=== PATIENT | male | born 1955 | race Caucasian/White ===

== ENCOUNTER 2019-03-17 00:43 | Inpatient (IN) | payer BC, MEDICARE ==
[2019-03-17] VITALS (24 sets, daily range): BP systolic 124–216; BP diastolic 69–108
[~2019-03-17] VITALS: Ht 182.9 cm; Wt 134.8 kg
[2019-03-17 01:18] LABS: BASO % 0 % (0-3); EOS % 0 % (0-3); HEMATOCRIT 52.9 % (39.0-53.0); HEMOGLOBIN 17.5 g/dL (13.0-17.5); LYMPH # 0.8 x10^3/uL (1.0-4.8); LYMPH % 6 % (24-48); MEAN CORPUSCULAR HEMOGLOBIN 28 pg (25-35); MEAN CORPUSCULAR HGB CONC 33 g/dL (31-37); MEAN CORPUSCULAR VOLUME 84 fL (79-100); MONO # 1.4 x10^3/uL (0.0-1.1); MONO % 10 % (0-9); NEUT # 12.6 x10^3/uL (1.8-7.7); NEUT % 85 % (31-73); PLATELET COUNT 173 x10^3/uL (140-400); RED BLOOD COUNT 6.28 x10^6/uL (4.30-5.70); RED CELL DISTRIBUTION WIDTH 20.7 % (11.5-14.5); WHITE BLOOD COUNT 14.9 x10^3/uL (4.0-11.0)
[2019-03-17] MEDS ORDERED: IV NORMAL SALINE 1000ML BAG 1,000 ML IV ONE ×2 (01:30→02:00)
[2019-03-17] MEDS ORDERED: fentaNYL PF VIAL 100 MCG/2 ML VIAL IV ONE (01:30)
--- NOTE | 2019-03-17 01:33 | PHYS DOC ---
Past Medical History Past Medical History: Hypertension Past Surgical History: No Surgical History Alcohol Use: None Drug Use: None Adult General Chief Complaint Chief Complaint: HIP PAIN, hallucinating HPI HPI Patient is a 63 year old male who presents via EMS with complaining of hip pain and hallucinating. Patient is not able to give history and his states he developed severe left hip pain about 1 month ago without known injury while visiting [place] and upon arriving to his home town in [place] he developed UTI very close to have sepsis and treated as outpatient with improvement of his condition. Patient had unremarkable x-ray of left and MRI was scheduled but they left their home town on March 06 and drove to [place] and then [place] and [place]. Patient was not able to drive and complaining of pain all the time but for the last 3 days was confused and hallucinating and not acting like his usual and finally agreed to come to the hospital by ambulance.Patient is alert and oriented 1 and unable to give any history. Review of Systems Review of Systems Unable to obtain Current Medications Current Medications Current Medications Medications (Trade) Dose Ordered Sig/Erasto Start Time Stop Time Status Last Admin Dose Admin Fentanyl Citrate (Fentanyl 2ml Vial) 50 mcg 1X ONCE 03/17/19 01:30 03/17/19 01:31 DC 03/17/19 01:37 50 MCG Sodium Chloride 1,000 ml @ 1,000 mls/hr 1X ONCE 03/17/19 01:30 03/17/19 02:29 DC 03/17/19 01:36 1,000 MLS/HR Allergies Allergies Allergies Coded Allergies Type Severity Reaction Last Updated Verified No Known Drug Allergies 03/17/19 No Physical Exam Physical Exam Constitutional: Well nourished, moderate distress, non-toxic appearance. [] HENT: Normocephalic, atraumatic. Eyes: PERRLA, EOMI, conjunctiva normal, no discharge. [] Neck: Normal range of motion, no tenderness, supple, no stridor. [] Cardiovascular:Heart rate regular rhythm, no murmur [] Lungs & Thorax: Bilateral breath sounds clear to auscultation [] Abdomen: Bowel sounds normal, soft, no tenderness, no masses, no pulsatile masses. [] Skin: Warm, dry, no erythema, no rash. [] Back: No tenderness, no CVA tenderness. [] Extremities: Left hip without deformity, no tenderness, 90 flexion of left knee with internal rotation of hip, no cyanosis, no clubbing, ROM intact, no edema. [] Neurologic: Alert and oriented X 1, no focal deficits noted. [] Psychologic: Unable to evaluate Current Patient Data Vital Signs Vital Signs Date Time Temp Pulse Resp B/P (MAP) Pulse Ox O2 Delivery O2 Flow Rate FiO2 03/17/19 01:00 97.6 129 24 142/73 (96) 98 Room Air 97.6 Lab Values Laboratory Tests Test 03/17/19 00:57 03/17/19 01:00 Lactic Acid Level 1.7 mmol/L (0.4-2.0) White Blood Count 14.9 x10^3/uL (4.0-11.0) H Red Blood Count 6.28 x10^6/uL (4.30-5.70) H Hemoglobin 17.5 g/dL (13.0-17.5) Hematocrit 52.9 % (39.0-53.0) Mean Corpuscular Volume 84 fL (79-100) Mean Corpuscular Hemoglobin 28 pg (25-35) Mean Corpuscular Hemoglobin Concent 33 g/dL (31-37) Red Cell Distribution Width 20.7 % (11.5-14.5) H Platelet Count 173 x10^3/uL (140-400) Neutrophils (%) (Auto) 85 % (31-73) H Lymphocytes (%) (Auto) 6 % (24-48) L Monocytes (%) (Auto) 10 % (0-9) H Eosinophils (%) (Auto) 0 % (0-3) Basophils (%) (Auto) 0 % (0-3) Neutrophils # (Auto) 12.6 x10^3/uL (1.8-7.7) H Lymphocytes # (Auto) 0.8 x10^3/uL (1.0-4.8) L Monocytes # (Auto) 1.4 x10^3/uL (0.0-1.1) H Eosinophils # (Auto) 0.0 x10^3/uL (0.0-0.7) Basophils # (Auto) 0.0 x10^3/uL (0.0-0.2) Platelet Estimate Adequate (ADEQUATE) Microcytosis Slight Macrocytosis Slight Sodium Level 131 mmol/L (136-145) L Potassium Level 5.9 mmol/L (3.5-5.1) H Chloride Level 94 mmol/L (98-107) L Carbon Dioxide Level 14 mmol/L (21-32) L Anion Gap 23 (6-14) H Blood Urea Nitrogen 145 mg/dL (8-26) H Creatinine 12.7 mg/dL (0.7-1.3) H Estimated GFR (Cockcroft-Gault) 4.0 BUN/Creatinine Ratio 11 (6-20) Glucose Level 149 mg/dL (70-99) H Calcium Level 9.3 mg/dL (8.5-10.1) Magnesium Level 2.5 mg/dL (1.8-2.4) H Total Bilirubin 1.7 mg/dL (0.2-1.0) H Aspartate Amino Transferase (AST) 128 U/L (15-37) H Alanine Aminotransferase (ALT) 41 U/L (16-63) Alkaline Phosphatase 174 U/L (46-116) H Creatine Kinase 4468 U/L (39-308) H Troponin I Quantitative < 0.017 ng/mL (0.000-0.055) WM-Qyg-U-Type Natriuretic Peptide 429 pg/mL (0-124) H Total Protein 7.8 g/dL (6.4-8.2) Albumin 2.6 g/dL (3.4-5.0) L Albumin/Globulin Ratio 0.5 (1.0-1.7) L Laboratory Tests 03/17/19 01:00 Laboratory Tests 03/17/19 01:00 EKG EKG EKG interpreted by me. EKG at 0108 showed sinus tachycardia at rate of 128, left word axis, low QRS voltage, poor R-wave progress in anteroseptal lead, no acute ST and T-wave abnormalities Radiology/Procedures Radiology/Procedures [][facility] [address] [place], [place] [id number] IMAGING REPORT Signed PATIENT: TONG COHEN CACCOUNT: [id number] : 1955 LOCATION: [address] [place] [address] AGE: 63 SEX: M EXAM STATUS: ADM IN ORD. PHYSICIAN: JENNIFER CHRISTIE MD REASON: confusion PROCEDURE: PORTABLE CHEST 1V EXAM: CHEST ONE VIEW. HISTORY: Altered mental status.. COMPARISON: None. FINDINGS: A frontal view of the chest is obtained. The inspiration is small. There is mild basilar atelectasis. There is no pneumothorax or pleural effusion. The heart is not enlarged. IMPRESSION: 1. Small inspiration. Mild basilar atelectasis. Electronically signed by: Felecia Quevedo MD (03/17/2019 3:22 AM) [facility] [id number] DICTATED and SIGNED BY: SMITA QUEVEDO MD DATE: 03/17/[address] [address] IMAGING REPORT Signed PATIENT: TONG COHENCOUNT: [id number] : 1955 LOCATION: [address] [place] [address] AGE: 63 SEX: M EXAM STATUS: ADM IN ORD. PHYSICIAN: JENNIFER CHRISTIE MD REASON: confusion PROCEDURE: CT HEAD WO CONTRAST EXAM: CT HEAD WITHOUT CONTRAST. HISTORY: Altered mental status. TECHNIQUE: Computed tomography of the head was performed without intravenous contrast. COMPARISON: None. FINDINGS: There is no intracranial hemorrhage. John-white differentiation is preserved. The ventricles are normal in size and position. The visualized paranasal sinuses appear clear. There are changes of bilateral cataract surgery. The temporal bones are unremarkable. The calvarium reveals no suspicious lesions. IMPRESSION: 1. No acute intracranial findings. *One or more of the following individualized dose reduction techniques were utilized for this examination: 1. Automated exposure control. 2. Adjustment of the mA and/or kV according to patient size. 3. Use of iterative reconstruction technique. Electronically signed by: Felecia Quevedo MD (03/17/2019 3:23 AM) [facility] – [id number] DICTATED and SIGNED BY: SMITA QUEVEDO MD DATE: 03/17/19322 [address] [address] IMAGING REPORT Signed PATIENT: TONG COHEN CACCOUNT: [id number] : 1955 LOCATION: [address] [place] [address] AGE: 63 SEX: M EXAM STATUS: ADM IN ORD. PHYSICIAN: JENNIFER CHRISTIE MD REASON: LT HIP PAIN, UNABLE TO UNCROSS LEFT LEG OR STRAIGHTEN DUE TO PAIN PROCEDURE: HIP LEFT 1 VIEW WITH PELVIS EXAM: Frontal pelvis with two-view left hip. HISTORY: Left hip pain. COMPARISON: None. FINDINGS: The left hip is flexed, limiting visualization. No fractures are identified. There is mildly decreased femoral head/neck offset anteriorly on the left and superolaterally on the right. There are milder degenerative changes of the lower lumbar spine. IMPRESSION: 1. Projectional limitations as above. 2. Correlate for mild femoroacetabular impingement bilaterally. Electronically signed by: Felecia Quevedo MD (03/17/2019 3:21 AM) [facility] DICTATED and SIGNED BY: SMITA QUEVEDO MD DATE: 03/17/19 032 Course & Med Decision Making Course & Med Decision Making Pertinent Labs and Imaging studies reviewed. (See chart for details) Evaluation of patient in ER showed 63-year-old patient from out of town brought in by EMS because of altered level of consciousness and chronic left hip pain. Patient was oriented 1 with tachycardia and agitation without fever and hypotension. Labs showed BUN of 145 and creatinine of 12.7 without history of renal failure. Patient was very dry and treated with IV fluid. On-call coil finisher Dr. Carmichael was consulted at 0203 and recommended to start D5 with 3 amp of bicarbonate at 150 ML per hour and will see the patient in the morning. CT of abdomen and pelvis and head CT is pending.Patient requiring admission for further evaluation and treatment. Discussed with Dr. Krishnamurthy who is in agreement with admission. Discussed findings and plan with patient and family, who acknowledge understanding and agreement. Dragon Disclaimer Dragon Disclaimer This electronic medical record was generated, in whole or in part, using a voice recognition dictation system. Departure Departure Impression: Primary Impression: Acute renal failure Additional Impressions: Altered level of consciousness Hyperkalemia Rhabdomyolysis Elevated liver function tests Hyponatremia Hypermagnesemia Urinary tract infection Hypoalbuminemia Hypochloremia Uremia Metabolic acidosis Disposition: ADMITTED INPATIENT (at 0134) Admitting Physician: HIMS Condition: GUARDED Referrals: NO PCP (PCP) Critical Care Time Critical care time was 100 minutes exclusive of procedures. Problem Qualifiers Primary Impression: Acute renal failure Acute renal failure type: unspecified Qualified Codes: N17.9 - Acute kidney failure, unspecified Additional Impressions: Rhabdomyolysis Rhabdomyolysis type: non-traumatic Qualified Codes: M62.82 - Rhabdomyolysis Urinary tract infection Urinary tract infection type: site unspecified Hematuria presence: without hematuria Qualified Codes: N39.0 - Urinary tract infection, site not specified JENNIFER CHRISTIE MD Mar 17, 2019 01:33
[2019-03-17 01:35] LABS: CALCIUM 9.3 mg/dL (8.5-10.1); CREATININE 12.7 mg/dL (0.7-1.3); POTASSIUM 5.9 mmol/L (3.5-5.1)
[2019-03-17 01:48] LABS: ALBUMIN 2.6 g/dL (3.4-5.0); ALBUMIN/GLOBULIN RATIO 0.5 (1.0-1.7); MAGNESIUM 2.5 mg/dL (1.8-2.4); TOTAL BILIRUBIN 1.7 mg/dL (0.2-1.0); TOTAL PROTEIN 7.8 g/dL (6.4-8.2)
[2019-03-17] MEDS ORDERED: SODIUM POLYSTYRENE SULFON/SORB 15 GM/60 ML ORAL.SUSP PO ONE (02:00)
[2019-03-17] MEDS ORDERED: VANCOMYCIN 1GM IVPB FOR OMNI 250 ML IV ONE (02:00)
[2019-03-17] MEDS ORDERED: SODIUM BICARB ADULT 8.4% 50 MEQ/50 ML DISP.SYRIN. IV ONE (02:00)
[2019-03-17] MEDS ORDERED: DEXTROSE 50% 25 GM / 50ML DISP.SYRIN. IV ONE (02:00)
[2019-03-17] MEDS ORDERED: PIPERACILLIN/TAZOBACTAM 3.375 GM in IV NORMAL SALINE 50ML 50 ML IV ONE (02:00)
[2019-03-17] MEDS ORDERED: INSULIN REGULAR 100 UNIT/ML 3ML VIAL. IV ONE (02:00)
[2019-03-17 02:20] LABS: BILIRUBIN,URINE NEGATIVE (NEG); CLARITY,URINE TURBID; COLOR,URINE AMBER; NITRITE,URINE NEGATIVE (NEG); PH,URINE 5.5; PROTEIN,URINE 100 mg/dL (NEG-TRACE); UROBILINOGEN,URINE 0.2 mg/dL (0.2 mg/dL)
[2019-03-17 02:44] LABS: BACTERIA,URINE MANY /HPF (0-FEW); RBC,URINE TNTC /HPF (0-2); SQUAMOUS EPITHELIAL CELL,UR FEW /LPF; WBC,URINE TNTC /HPF (0-4)
[2019-03-17 03:04] LABS: MICROCYTOSIS SLIGHT; PLT ESTIMATE ADEQUATE (ADEQUATE)
--- NOTE | 2019-03-17 03:24 | RAD ---
EXAM: Frontal pelvis with two-view left hip. HISTORY: Left hip pain. COMPARISON: None. FINDINGS: The left hip is flexed, limiting visualization. No fractures are identified. There is mildly decreased femoral head/neck offset anteriorly on the left and superolaterally on the right. There are milder degenerative changes of the lower lumbar spine. IMPRESSION: 1. Projectional limitations as above. 2. Correlate for mild femoroacetabular impingement bilaterally. Electronically signed by: Felecia Quevedo MD (03/17/2019 3:21 AM) [facility]
--- NOTE | 2019-03-17 03:25 | RAD ---
EXAM: CHEST ONE VIEW. HISTORY: Altered mental status.. COMPARISON: None. FINDINGS: A frontal view of the chest is obtained. The inspiration is small. There is mild basilar atelectasis. There is no pneumothorax or pleural effusion. The heart is not enlarged. IMPRESSION: 1. Small inspiration. Mild basilar atelectasis. Electronically signed by: Felecia Quevedo MD (03/17/2019 3:22 AM) [facility]
--- NOTE | 2019-03-17 03:26 | RAD ---
EXAM: CT HEAD WITHOUT CONTRAST. HISTORY: Altered mental status. TECHNIQUE: Computed tomography of the head was performed without intravenous contrast. COMPARISON: None. FINDINGS: There is no intracranial hemorrhage. John-white differentiation is preserved. The ventricles are normal in size and position. The visualized paranasal sinuses appear clear. There are changes of bilateral cataract surgery. The temporal bones are unremarkable. The calvarium reveals no suspicious lesions. IMPRESSION: 1. No acute intracranial findings. *One or more of the following individualized dose reduction techniques were utilized for this examination: 1. Automated exposure control. 2. Adjustment of the mA and/or kV according to patient size. 3. Use of iterative reconstruction technique. Electronically signed by: Felecia Quevedo MD (03/17/2019 3:23 AM) [facility]
[2019-03-17] MEDS ORDERED: HYDROmorphone 2 MG/ML VIAL IV ONE (04:00)
[2019-03-17] MEDS: SODIUM BICARBONATE VIAL 150 MEQ in IV DEXTROSE 5% 1,000 ML IV SCH ×3 (04:26→21:09)
--- NOTE | 2019-03-17 05:43 | NUR ---
PATIENT IS TRANSFERRED TO ICU ROOM 110 FROM THE ED. REPORT RECEIVED FROM FREDDY CHAPIN. UPON ARRIVAL PATIENT AWAKE, DYSPHASIA. BASELINE IS ALERT AND ORIENTED X4 AND IS ABLE TO CARE FOR HIMSELF. PATIENT'S AT BEDSIDE STATES THEY ARE FROM [place] AND HAVE BEEN TRAVELING FROM [place] WHEN PATIENT APPEARED ALTERED WITH GENERAL MALAISE. CURRENTLY BEING TREATED FOR UTI AND HAS BEEN TAKING PO ABX BUT NOT RELIEVING SYMPTOMS. CURRENTLY BEING EVALUATED BY UROLOGY AND WAS SCHEDULED FOR CYSTOSCOPY NEXT WEEK. HX OF UTI'S AND AN ABLATION ABOUT 3 MONTHS AGO. SEPSIS POSITIVE. FOUNDING PARTNER TO ICU PATIENT WITH 2LNS INFUSED, NORMAL LACTIC ACID, BLOOD CULTURES AND ABX COMPLETED. IVS AND BICARB, INSULIN, AND D50, VANCO AND BICARB DRIP TO BE GIVEN IN ICU. SEPSIS. DR. SOTO CALLED AND ORDERS FOR IR FOR DIALYSIS CATH. KAYEXOLATE DISCONTINUED AND NOT NEEDED AT THIS TIME. WILL CONTINUE TO MONITOR.
[2019-03-17] MEDS ORDERED: CYCL10TA2 PO (06:45)
[2019-03-17] MEDS ORDERED: OLME1TAB35 PO (06:45)
[2019-03-17] MEDS ORDERED: OXYC1TAB7 PO (06:45)
[2019-03-17] MEDS ORDERED: DOXA4TAB3 PO (06:45)
[2019-03-17] MEDS ORDERED: LIDOCAINE WITH 8.4% SOD BICARB 3 ML DISP.SYRIN. INJ ONE (07:30)
--- NOTE | 2019-03-17 07:55 | NUR ---
IR IN PT ROOM AT THIS TIME TO PLACE TEMP DIALYSIS CATH.
--- NOTE | 2019-03-17 08:28 | RAD ---
EXAM: Chest, single view. HISTORY: Dialysis catheter placement. COMPARISON: 03/17/2019 FINDINGS: A frontal view of the chest is obtained. There is a right internal jugular dialysis catheter with the tip in the superior cavoatrial junction or superior right atrium. There is mention. There are suspected small pleural effusions. There is no pneumothorax. There is a stable cardiac silhouette. IMPRESSION: 1. Right internal jugular catheter with the tip in the superior right atrium or superior cavoatrial junction. 2. Mild pulmonary congestion with possible small pleural effusions. Electronically signed by: Michelle Rehman MD (03/17/2019 8:26 AM) [facility]
--- NOTE | 2019-03-17 08:52 | PDOC ---
Exam Wafer Fabrication Operator Wafer Fabrication Operator joel Buhr Dresser Buhr Dresser n/a Pre-Procedure Diagnosis Pre-Procedure Diagnosis renal failure Post-Procedure Diagnosis Post-Procedure Diagnosis same Procedure Performed Procedure Performed HD catheter Type of Anesthesia Type of Anesthesia local Estimated Blood Loss EBL: trace Specimens Specimans n/a Drain/Tubes Drains/Tubes 14 FR x 20 cm Condition of Patient Condition of Patient stable SOSA BARRETT MD Mar 17, 2019 08:52
[2019-03-17 09:15] LABS: BASO % 0 % (0-3); EOS # 0.1 x10^3/uL (0.0-0.7); EOS % 0 % (0-3); HEMATOCRIT 46.8 % (39.0-53.0); HEMOGLOBIN 15.7 g/dL (13.0-17.5); LYMPH # 0.7 x10^3/uL (1.0-4.8); LYMPH % 6 % (24-48); MEAN CORPUSCULAR HEMOGLOBIN 28 pg (25-35); MEAN CORPUSCULAR HGB CONC 34 g/dL (31-37); MEAN CORPUSCULAR VOLUME 83 fL (79-100); MONO # 1.2 x10^3/uL (0.0-1.1); MONO % 10 % (0-9); NEUT # 10.8 x10^3/uL (1.8-7.7); NEUT % 84 % (31-73); PLATELET COUNT 162 x10^3/uL (140-400); RED BLOOD COUNT 5.64 x10^6/uL (4.30-5.70); RED CELL DISTRIBUTION WIDTH 20.7 % (11.5-14.5); WHITE BLOOD COUNT 12.8 x10^3/uL (4.0-11.0)
[2019-03-17 09:23] LABS: PROTHROMBIN TIME PATIENT 18.9 SEC (11.7-14.0)
--- NOTE | 2019-03-17 09:33 | NUR ---
PT RECEIVING DIALYSIS AT BEDSIDE AT THIS TIME Addendum: 03/17/19 at 0935 by Franklin Armenta RN DISREGARD NOTE WRONG CHART
[2019-03-17 09:39] LABS: ALBUMIN 2.1 g/dL (3.4-5.0); ALBUMIN/GLOBULIN RATIO 0.5 (1.0-1.7); CALCIUM 8.3 mg/dL (8.5-10.1); GFR 4.7; POTASSIUM 5.4 mmol/L (3.5-5.1); TOTAL BILIRUBIN 1.4 mg/dL (0.2-1.0); TOTAL PROTEIN 6.4 g/dL (6.4-8.2)
[2019-03-17] MEDS ORDERED: IV NORMAL SALINE 1000ML BAG 1,000 ML IV PRN ×2 (10:58)
[2019-03-17] MEDS ORDERED: ALBUMIN HUMAN 25% 200 ML IV PRN (11:00)
[2019-03-17] MEDS ORDERED: diphenhydrAMINE 50 MG/ML VIAL IV PRN ×2 (11:00)
[2019-03-17] MEDS ORDERED: ACETAMINOPHEN 500 MG TABLET PO PRN (11:00)
[2019-03-17] MEDS ORDERED: 0.9 % SODIUM CHLORIDE 10 ML DISP.SYRIN. IV PRN ×2 (11:00)
[2019-03-17] MEDS ORDERED: DIALYSIS PATIENT. MC PRN (11:00)
--- NOTE | 2019-03-17 11:20 | EKG ---
[facility] [address] [place] [address] Test Date: 2019-03-17 Test Time: 01:08:27 Pat Name: TONG COHEN Department: Room: 110 1 Gender: M Vp Product Management: : 1955 Requested By: JENNIFER CHRISTIE Order Number: [id number] Reading MD: Elton Martinez MD Measurements Intervals [place] Rate: 128 P: -143 [place]: 68 QRS: -28 QRSD: 90 T: 34 QT: 270 QTc: 397 Interpretive Statements SINUS TACHYCARDIA NON-SPECIFIC ST/T CHANGES CONSIDER INFERIOR INFARCT Electronically Signed On 03-26-2019 10:28:20 CDT by Elton Martinez MD
[2019-03-17] MEDS ORDERED: PIP/TAZO PER PHARMACY MC PRN (12:15)
--- NOTE | 2019-03-17 12:33 | HP ---
ADMIT DATE: 03/17/2019 CHIEF COMPLAINT: Mental status change. HISTORY OF PRESENT ILLNESS: The patient is a pleasant middle-aged male who basically developed mental status change. He and his have been traveling around the country. They went from [place] to [place], then to [place], then I think to [place], apparently they have been trying to get back home to [place], but he has been slowly developing mental status change. The explains that a month ago he had a prostate surgery. I suspect it was a TURP. Two weeks after that he had to have it revised because there was a flap that fell down and was causing renal obstruction. Sure enough, when he got to our ER, his BUN and creatinine were extremely high. I suspect his TURP has failed again. His BUN is 145, creatinine 12.7. I suspect his mental status change is actually uremia. The patient has been admitted to the ICU. We are going to consult Nephrology, get him dialyzed. We have put a catheter in him. A large amount of urine did pour out into the Neri bag. PAST MEDICAL HISTORY: BPH, probable TURP, hypertension, muscle spasms, hypertension, chronic pain. ALLERGIES: None. FAMILY HISTORY: Diabetes. SOCIAL HISTORY: Does not drink, smoke or take drugs. He is retired. MEDICATIONS: Reviewed, please refer to the MRAD. REVIEW OF SYSTEMS: Unable to obtain. The patient is too confused. PHYSICAL EXAMINATION: VITALS: Within normal limits and are stable. GENERAL: No apparent distress. Alert and oriented. HEENT: Head is normocephalic, atraumatic, pupils were equally round and reactive to light and accommodation. NECK: Supple, no JVD, no thyromegaly was noted. LUNGS: Clear to auscultation in all lung perez without rhonchi or wheezing. HEART: RRR, S1, S2 present. Peripheral pulses intact, no obvious murmurs were noted. ABDOMEN: Soft, nontender. Positive bowel sounds, no organomegaly, normal bowel sounds. His abdomen is distended and obese. EXTREMITIES: Without any cyanosis, clubbing, or edema. Pedal pulses intact, Homans sign is negative. NEUROLOGIC: Normal speech, normal tone. A & O x3, moves all extremities, no obvious focal deficits. He is confused. PSYCHIATRIC: Normal affect, normal mood. Stable. SKIN: No ulcerations or rashes, good skin turgor, no jaundice. VASCULAR: Good capillary refill, neurovascular bundle appears to be intact. LABORATORY DATA: White count is 14.9, hemoglobin is 17.5, platelet is 173. Electrolytes: Sodium 131, potassium 5.9, chloride 94, bicarbonate 14, BUN 145, creatinine 12.7, glucose 149, AST a little high at 128, ALT 41. CPK 468. BNP 429. Troponin 0. Urinalysis shows a large amount of leukocyte esterase and numerous to count white cells. INR is 1.6. Hep B surface antigen negative. ASSESSMENT AND PLAN: Mental status change. I suspect this is secondary to a combination of uremia and urinary tract infection with sepsis. The patient has been admitted. We have placed a Neri. I am starting IV Zosyn. Consult Nephrology. Suspect he will need to be dialyzed. In fact, a catheter has been placed already. Home meds. Monitor his urine output, trend his BUN and creatinine, consult Urology. PROGNOSIS: Guarded, but I think once we get him dialyzed and keep the Neri in for a few days, this should resolve. POLY DELGADO DO DR: STAR/jillian JOB#: [id number] / [id number]
--- NOTE | 2019-03-17 13:19 | NUR ---
PT RECEIVING DIALYSIS AT THIS TIME. CONSULT CALLED TO DR. MADDOX.
--- NOTE | 2019-03-17 15:07 | CONS ---
DATE OF CONSULTATION: 03/17/2019 REQUESTING PHYSICIAN: Hospitalist. REASON FOR CONSULTATION: Renal failure. HISTORY OF PRESENT ILLNESS: This is a 63-year-old gentleman with history of hypertension and multiple urologic interventions with history of nephrolithiasis. The patient is from [place]. He has been traveling. He presents to the Emergency Department with altered mentation. He was found to be in acute renal failure with marked uremia in addition to hyperkalemia and rhabdomyolysis. In this setting, Nephrology evaluation is requested. He has had previous history of urinary tract infection with sepsis, but has not ever had renal failure. PAST MEDICAL HISTORY: Morbid obesity, hypertension, urinary tract infections with sepsis, and multiple urologic interventions. ALLERGIES: None. MEDICATIONS: Reviewed per medication list. FAMILY HISTORY: Noncontributory. SOCIAL HISTORY: The patient resides with . REVIEW OF SYSTEMS: No headache, sinus problem, nasal drainage, epistaxis, or change in vision or hearing. No difficulty swallowing. No fever or chills. No cough, sputum production, or hemoptysis. No chest pain. No abdominal pain. No nausea or vomiting. No diarrhea. No seizures. He has had twitching, but the patient's states that he does that in the sleep on an ongoing basis. DIAGNOSTIC DATA: CT head: No acute intracranial findings. Chest radiograph: Small inspiration. No acute infiltrates. LABORATORY DATA: Sodium 131, potassium 5.9, chloride 94, CO2 14, BUN 145, creatinine 12.7, glucose 149, and magnesium 2.5. CPK 4468. Urinalysis; large blood, too numerous to count rbc's, and large leukocyte esterase. White count 14.9, hemoglobin 17.5, and hematocrit 52.9. IMPRESSION: 1. Renal failure, acute - appears to have urinary tract infection. We will also assess for obstructive process. The patient is having urine output. 2. Metabolic acidosis. 3. Hyperkalemia, improving, now at 5.4. RECOMMENDATIONS: 1. Acute dialysis catheter with acute dialysis. Some of his mental status changes certainly could be uremia. 2. Renal ultrasound. 3. Antibiotics pending culture results. LETY SOTO MD DR: FREDERIC/jillian JOB#: [id number] / [id number]
[2019-03-17] MEDS: PIPERACILLIN/TAZOBACTAM 2.25 GM in IV NORMAL SALINE 50ML 50 ML IV SCH ×2 (16:15→21:35)
[2019-03-17] MEDS ORDERED: LABETALOL 20 MG/4 ML DISP.SYRIN. IVP ONE (18:00)
[2019-03-17] MEDS ORDERED: LABETALOL 20 MG/4 ML DISP.SYRIN. IVP PRN (18:00)
--- NOTE | 2019-03-17 18:08 | NUR ---
PT RECEIVE TEMP DIALYSIS CATH AND DIALYSIS TODAY WHICH HE TOLERATED WELL. PT REMAINS ON IV BICARB. WILL CONTINUE TO ASSESS.
[2019-03-17] MEDS: LACTOBACILLUS RHAMNOSUS GG 1 CAPSULE. PO SCH (21:27)
[2019-03-17] MEDS: CYCLOBENZAPRINE 10 MG TABLET. PO SCH (21:27)
[2019-03-18] VITALS (16 sets, daily range): BP systolic 99–185; BP diastolic 41–97
[2019-03-18 05:25] LABS: BASO % 0 % (0-3); EOS # 0.1 x10^3/uL (0.0-0.7); EOS % 1 % (0-3); HEMATOCRIT 51.2 % (39.0-53.0); HEMOGLOBIN 17.6 g/dL (13.0-17.5); LYMPH # 0.7 x10^3/uL (1.0-4.8); LYMPH % 7 % (24-48); MEAN CORPUSCULAR HEMOGLOBIN 28 pg (25-35); MEAN CORPUSCULAR HGB CONC 34 g/dL (31-37); MEAN CORPUSCULAR VOLUME 81 fL (79-100); MONO # 1.4 x10^3/uL (0.0-1.1); MONO % 13 % (0-9); NEUT # 8.4 x10^3/uL (1.8-7.7); NEUT % 79 % (31-73); PLATELET COUNT 162 x10^3/uL (140-400); RED CELL DISTRIBUTION WIDTH 20.7 % (11.5-14.5); WHITE BLOOD COUNT 10.7 x10^3/uL (4.0-11.0)
[2019-03-18 05:40] LABS: ALBUMIN/GLOBULIN RATIO 0.4 (1.0-1.7); CALCIUM 8.7 mg/dL (8.5-10.1); GFR 9.5; POTASSIUM 4.3 mmol/L (3.5-5.1); TOTAL BILIRUBIN 1.1 mg/dL (0.2-1.0); TOTAL PROTEIN 6.7 g/dL (6.4-8.2)
[2019-03-18] MEDS: PIPERACILLIN/TAZOBACTAM 2.25 GM in IV NORMAL SALINE 50ML 50 ML IV SCH ×3 (06:19→21:21)
[2019-03-18] MEDS: SODIUM BICARBONATE VIAL 150 MEQ in IV DEXTROSE 5% 1,000 ML IV SCH ×3 (06:19→23:01)
--- NOTE | 2019-03-18 10:32 | PDOC2 ---
JACKSON SMITH 03/18/19 1032: UROLOGY CONSULT Date of Consult Date of Consult DATE: 03/18/19 TIME: 09:54 Identification/Chief Complaint Chief Complaint Recent TURP, urinary retention Source Source: Caregiver, Chart review, Patient History of Present Illness Reason for Visit: 63yo male presented to ER for AMS. He was found to be in ARF and admitted for HD. He and his are traveling the country and live in [place]. He had a prostate procedure (?TURP) 4-6 months ago and has had complications since. His urologist in [place] was planning to scope him next week due to ?obstructing prostate tissue remaining. He denies difficulty urinating or hematuria recently. He had been taking pain medication for hip pain. He's had multiple UTIs recently, once leading to sepsis. His UA is abnormal this hospitalization. A catheter was placed with "large amount of output". Past Medical History Cardiovascular: HTN Renal/: Acute renal failure, UTI, Benign prostatic enlarg. Past Surgical History Past Surgical History: Other (?TURP) Family History Family History: Diabetes Social History No ALCOHOL: none Drugs: None Current Medications Current Medications Current Medications Acetaminophen (Tylenol) 500 mg 1X PRN PRN PO MILD PAIN / TEMP; Start 03/17/19 at 11:00; Stop 03/18/19 at 10:59 Albumin Human 200 ml @ 200 mls/hr 1X PRN PRN IV Hypotension; Start 03/17/19 at 11:00; Stop 03/17/19 at 16:59; Status DC Amlodipine Besylate (Norvasc) 10 mg DAILY PO ; Start 03/18/19 at 09:00 Cyclobenzaprine HCl (Flexeril) 10 mg TID PO Last administered on 03/17/19at 21:27; Start 03/17/19 at 21:00 Diphenhydramine HCl (Benadryl) 25 mg 1X PRN PRN IV ITCHING; Start 03/17/19 at 11:00; Stop 03/18/19 at 10:59 Diphenhydramine HCl (Benadryl) 25 mg 1X PRN PRN IV ITCHING; Start 03/17/19 at 11:00; Stop 03/18/19 at 10:59 Doxazosin Mesylate (Cardura) 4 mg DAILY PO ; Start 03/18/19 at 09:00 Info (PHARMACY MONITORING -- do not chart) 1 each PRN DAILY PRN MC SEE COMMENTS; Start 03/17/19 at 11:00 Labetalol HCl (Normodyne Iv Push) 20 mg 1X ONCE IVP Last administered on 03/17/19at 18:01; Start 03/17/19 at 18:00; Stop 03/17/19 at 18:01; Status DC Labetalol HCl (Normodyne Iv Push) 20 mg PRN Q2HR PRN IVP HYPERTENSION Last administered on 03/18/19at 01:39; Start 03/17/19 at 18:00 Lactobacillus Rhamnosus (Culturelle) 1 cap BID PO Last administered on 03/17/19at 21:27; Start 03/17/19 at 21:00 Oxycodone/ Acetaminophen (Percocet 5/325) 1 tab PRN Q6HRS PRN PO PAIN SEVERE; Start 03/17/19 at 18:00 Piperacillin Sod/ Tazobactam Sod (Zosyn Per Pharmacy) 1 each PRN DAILY PRN MC SEE COMMENTS; Start 03/17/19 at 12:15 Piperacillin Sod/ Tazobactam Sod 2.25 gm/Sodium Chloride 50 ml @ 100 mls/hr Q8HRS IV Last administered on 03/18/19at 06:19; Start 03/17/19 at 14:00 Sodium Chloride 1,000 ml @ 400 mls/hr Q2H30M PRN IV PATENCY; Start 03/17/19 at 10:58; Stop 03/17/19 at 22:57; Status DC Sodium Chloride 1,000 ml @ 1,000 mls/hr Q1H PRN IV hypotension; Start 03/17/19 at 10:58; Stop 03/17/19 at 16:57; Status DC Sodium Chloride (Normal Saline Flush) 10 ml 1X PRN PRN IV AP 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; St art 03/17/19 at 11:00; Stop 03/18/19 at 10:59 Sodium Chloride (Normal Saline Flush) 10 ml 1X PRN PRN IV FUR TRIMMER 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; Start 03/17/19 at 11:00; Stop 03/18/19 at 10:59 Allergies Allergies: Coded Allergies: No Known Drug Allergies (Unverified , 03/17/19) ROS Review Of Systems: CONSTITUTIONAL: No fever or chills EYES: No recent changes SKIN: No rash or itching CARDIOVASCULAR: No chest pain, syncope, palpitations, or edema RESPIRATORY: + cough, dark sputum GASTROINTESTINAL: No nausea, vomiting or abdominal pain NEUROLOGICAL: No headaches or weakness ENDOCRINE: No cold or heat intolerance GENITOURINARY: As per HPI MUSCULOSKELETAL: No back pain or joint pain LYMPHATICS: No enlarged lymph nodes PSYCHIATRIC: No anxiety or depression Physical Exam Physical Exam: General: Pleasant, no acute distress, well groomed Eyes: conjunctiva anicteric, eyes full range of motion ENT: moist oral mucosa, normal dentition Neck: Trachea midline, no masses Respiratory: unlabored breathing, not using accessory muscles Cardiovascular: Regular rate, regular rhythm peripheral pulses Abdomen: nontender, nondistended, obese : No CVAT. Newsome catheter draining cloudy yellow/red urine with small clots Skin: no rashes or skin lesions on visualized skin Psych: normal mood, affect. Appears alert and oriented this morning Vitals VITALS Vital Signs Date Time Temp Pulse Resp B/P (MAP) Pulse Ox O2 Delivery O2 Flow Rate FiO2 03/18/19 09:00 93 16 143/81 (101) 96 Room Air 03/18/19 08:00 98.8 98.8 Labs Labs Laboratory Tests Test 03/17/19 00:57 03/17/19 01:00 03/17/19 01:45 03/17/19 02:05 Lactic Acid Level 1.7 mmol/L (0.4-2.0) White Blood Count 14.9 x10^3/uL (4.0-11.0) Red Blood Count 6.28 x10^6/uL (4.30-5.70) Hemoglobin 17.5 g/dL (13.0-17.5) Hematocrit 52.9 % (39.0-53.0) Mean Corpuscular Volume 84 fL (79-100) Mean Corpuscular Hemoglobin 28 pg (25-35) Mean Corpuscular Hemoglobin Concent 33 g/dL (31-37) Red Cell Distribution Width 20.7 % (11.5-14.5) Platelet Count 173 x10^3/uL (140-400) Neutrophils (%) (Auto) 85 % (31-73) Lymphocytes (%) (Auto) 6 % (24-48) Monocytes (%) (Auto) 10 % (0-9) Eosinophils (%) (Auto) 0 % (0-3) Basophils (%) (Auto) 0 % (0-3) Neutrophils # (Auto) 12.6 x10^3/uL (1.8-7.7) Lymphocytes # (Auto) 0.8 x10^3/uL (1.0-4.8) Monocytes # (Auto) 1.4 x10^3/uL (0.0-1.1) Eosinophils # (Auto) 0.0 x10^3/uL (0.0-0.7) Basophils # (Auto) 0.0 x10^3/uL (0.0-0.2) Platelet Estimate Adequate (ADEQUATE) Microcytosis Slight Macrocytosis Slight Sodium Level 131 mmol/L (136-145) Potassium Level 5.9 mmol/L (3.5-5.1) Chloride Level 94 mmol/L (98-107) Carbon Dioxide Level 14 mmol/L (21-32) Anion Gap 23 (6-14) Blood Urea Nitrogen 145 mg/dL (8-26) Creatinine 12.7 mg/dL (0.7-1.3) Estimated GFR (Cockcroft-Gault) 4.0 BUN/Creatinine Ratio 11 (6-20) Glucose Level 149 mg/dL (70-99) Calcium Level 9.3 mg/dL (8.5-10.1) Magnesium Level 2.5 mg/dL (1.8-2.4) Total Bilirubin 1.7 mg/dL (0.2-1.0) Aspartate Amino Transf (AST/SGOT) 128 U/L (15-37) Alanine Aminotransferase (ALT/SGPT) 41 U/L (16-63) Alkaline Phosphatase 174 U/L (46-116) Creatine Kinase 4468 U/L (39-308) Troponin I Quantitative < 0.017 ng/mL (0.000-0.055) JW-Igw-C-Type Natriuretic Peptide 429 pg/mL (0-124) Total Protein 7.8 g/dL (6.4-8.2) Albumin 2.6 g/dL (3.4-5.0) Albumin/Globulin Ratio 0.5 (1.0-1.7) Ammonia < 10 mcmol/L (11-34) Urine Collection Type Unknown Urine Color Seema Urine Clarity Turbid Urine pH 5.5 Urine Specific Julian 1.015 Urine Protein 100 mg/dL (NEG-TRACE) Urine Glucose (UA) Negative mg/dL (NEG) Urine Ketones (Stick) Trace mg/dL (NEG) Urine Blood Large (NEG) Urine Nitrite Negative (NEG) Urine Bilirubin Negative (NEG) Urine Urobilinogen Dipstick 0.2 mg/dL (0.2 mg/dL) Urine Leukocyte Esterase Large (NEG) Urine RBC Tntc /HPF (0-2) Urine WBC Tntc /HPF (0-4) Urine Squamous Epithelial Cells Few /LPF Urine Bacteria Many /HPF (0-FEW) Test 03/17/19 09:00 03/18/19 05:02 White Blood Count 12.8 x10^3/uL (4.0-11.0) 10.7 x10^3/uL (4.0-11.0) Red Blood Count 5.64 x10^6/uL (4.30-5.70) 6.30 x10^6/uL (4.30-5.70) Hemoglobin 15.7 g/dL (13.0-17.5) 17.6 g/dL (13.0-17.5) Hematocrit 46.8 % (39.0-53.0) 51.2 % (39.0-53.0) Mean Corpuscular Volume 83 fL (79-100) 81 fL (79-100) Mean Corpuscular Hemoglobin 28 pg (25-35) 28 pg (25-35) Mean Corpuscular Hemoglobin Concent 34 g/dL (31-37) 34 g/dL (31-37) Red Cell Distribution Width 20.7 % (11.5-14.5) 20.7 % (11.5-14.5) Platelet Count 162 x10^3/uL (140-400) 162 x10^3/uL (140-400) Neutrophils (%) (Auto) 84 % (31-73) 79 % (31-73) Lymphocytes (%) (Auto) 6 % (24-48) 7 % (24-48) Monocytes (%) (Auto) 10 % (0-9) 13 % (0-9) Eosinophils (%) (Auto) 0 % (0-3) 1 % (0-3) Basophils (%) (Auto) 0 % (0-3) 0 % (0-3) Neutrophils # (Auto) 10.8 x10^3/uL (1.8-7.7) 8.4 x10^3/uL (1.8-7.7) Lymphocytes # (Auto) 0.7 x10^3/uL (1.0-4.8) 0.7 x10^3/uL (1.0-4.8) Monocytes # (Auto) 1.2 x10^3/uL (0.0-1.1) 1.4 x10^3/uL (0.0-1.1) Eosinophils # (Auto) 0.1 x10^3/uL (0.0-0.7) 0.1 x10^3/uL (0.0-0.7) Basophils # (Auto) 0.0 x10^3/uL (0.0-0.2) 0.0 x10^3/uL (0.0-0.2) Prothrombin Time 18.9 SEC (11.7-14.0) Prothromb Time International Ratio 1.6 (0.8-1.1) Sodium Level 134 mmol/L (136-145) 139 mmol/L (136-145) Potassium Level 5.4 mmol/L (3.5-5.1) 4.3 mmol/L (3.5-5.1) Chloride Level 99 mmol/L (98-107) 101 mmol/L (98-107) Carbon Dioxide Level 15 mmol/L (21-32) 27 mmol/L (21-32) Anion Gap 20 (6-14) 11 (6-14) Blood Urea Nitrogen 136 mg/dL (8-26) 89 mg/dL (8-26) Creatinine 11.0 mg/dL (0.7-1.3) 6.0 mg/dL (0.7-1.3) Estimated GFR (Cockcroft-Gault) 4.7 9.5 BUN/Creatinine Ratio 12 (6-20) 15 (6-20) Glucose Level 121 mg/dL (70-99) 155 mg/dL (70-99) Calcium Level 8.3 mg/dL (8.5-10.1) 8.7 mg/dL (8.5-10.1) Total Bilirubin 1.4 mg/dL (0.2-1.0) 1.1 mg/dL (0.2-1.0) Aspartate Amino Transf (AST/SGOT) 112 U/L (15-37) 80 U/L (15-37) Alanine Aminotransferase (ALT/SGPT) 40 U/L (16-63) 51 U/L (16-63) Alkaline Phosphatase 155 U/L (46-116) 190 U/L (46-116) Total Protein 6.4 g/dL (6.4-8.2) 6.7 g/dL (6.4-8.2) Albumin 2.1 g/dL (3.4-5.0) 2.0 g/dL (3.4-5.0) Albumin/Globulin Ratio 0.5 (1.0-1.7) 0.4 (1.0-1.7) Hepatitis B Surface Antigen Nonreactive (Nonreactive) Hepatitis B Surface Antibody, Quant <3.1 mIU/mL (Immunity>9.9) Laboratory Tests Test 03/18/19 05:02 White Blood Count 10.7 x10^3/uL (4.0-11.0) Red Blood Count 6.30 x10^6/uL (4.30-5.70) Hemoglobin 17.6 g/dL (13.0-17.5) Hematocrit 51.2 % (39.0-53.0) Mean Corpuscular Volume 81 fL (79-100) Mean Corpuscular Hemoglobin 28 pg (25-35) Mean Corpuscular Hemoglobin Concent 34 g/dL (31-37) Red Cell Distribution Width 20.7 % (11.5-14.5) Platelet Count 162 x10^3/uL (140-400) Neutrophils (%) (Auto) 79 % (31-73) Lymphocytes (%) (Auto) 7 % (24-48) Monocytes (%) (Auto) 13 % (0-9) Eosinophils (%) (Auto) 1 % (0-3) Basophils (%) (Auto) 0 % (0-3) Neutrophils # (Auto) 8.4 x10^3/uL (1.8-7.7) Lymphocytes # (Auto) 0.7 x10^3/uL (1.0-4.8) Monocytes # (Auto) 1.4 x10^3/uL (0.0-1.1) Eosinophils # (Auto) 0.1 x10^3/uL (0.0-0.7) Basophils # (Auto) 0.0 x10^3/uL (0.0-0.2) Sodium Level 139 mmol/L (136-145) Potassium Level 4.3 mmol/L (3.5-5.1) Chloride Level 101 mmol/L (98-107) Carbon Dioxide Level 27 mmol/L (21-32) Anion Gap 11 (6-14) Blood Urea Nitrogen 89 mg/dL (8-26) Creatinine 6.0 mg/dL (0.7-1.3) Estimated GFR (Cockcroft-Gault) 9.5 BUN/Creatinine Ratio 15 (6-20) Glucose Level 155 mg/dL (70-99) Calcium Level 8.7 mg/dL (8.5-10.1) Total Bilirubin 1.1 mg/dL (0.2-1.0) Aspartate Amino Transf (AST/SGOT) 80 U/L (15-37) Alanine Aminotransferase (ALT/SGPT) 51 U/L (16-63) Alkaline Phosphatase 190 U/L (46-116) Total Protein 6.7 g/dL (6.4-8.2) Albumin 2.0 g/dL (3.4-5.0) Albumin/Globulin Ratio 0.4 (1.0-1.7) Images Images CT abd/pelv pending this AM Assessment/Plan Assessment/Plan Urinary Retention, REJI ?failed TURP outlet obstruction vs. cystoparesis Recommend continuing catheter until REJI resolves May need intermittent self-cath or indwelling catheter afterward to prevent retention again Followup with urologist in [place] once home PIERRE LOVE MD 03/18/19 1338: UROLOGY CONSULT Assessment/Plan Assessment/Plan I agree with assessment. I have seen patient and reviewed chart. The CT today shows no hydro and creat is down to 6. Would leave newsome in place until creatinine stabilizes. he may retun to [place] w newsome. JACKSON SMITH Mar 18, 2019 10:32 PIERRE LOVE MD Mar 18, 2019 13:38
--- NOTE | 2019-03-18 10:42 | NUR ---
Per RN, Pt unsteady with transfer to chair. Would recommend PT assessment to ensure safe mobility prior to return home. Please write PT eval and treat orders if you agree. Addendum: 03/18/19 at 1043 by ADE HAWLEY PT Amended: Links added.
--- NOTE | 2019-03-18 11:35 | NUR ---
SS following for discharge planning. SS reviewed pt chart. Pt is from out of town ([place]) and has been traveling with his spouse. Pt is currently on room air and on temporary dialysis at this time. SS will continue to follow for discharge planning.
--- NOTE | 2019-03-18 11:44 | RAD ---
Examination: CT ABDOMEN PELVIS WO CONTRAST History: Acute renal failure. Comparison/Correlation: None Findings: Axial images of the abdomen and pelvis were obtained without contrast. Sagittal and coronal reformatted images were provided. Minimal linear atelectasis or scarring is noted in the left lung base. Left lower lobe medial basilar 0.8 cm diameter by 0.7 cm x 0.5 cm longitudinal noncalcified nodule is present. Slight fatty infiltration of liver is present. Spleen is unremarkable. Gallbladder fossa is unremarkable. Adrenal glands are normal. No extraluminal gas. Right renal superior pole and inferior pole low-attenuation lesion are noted and too small for characterization likely representing cysts. The right renal lower pole laterally, there is a convexity noted best seen on coronal image 43 of series 5. This may represent a dromedary hump although possibly possibly elevated mass lesion is not entirely excluded. Lobulated contour of the kidneys is mildly seen however greater on the left. No hydronephrosis or nephrolithiasis. No hydroureter. Urinary bladder is decompressed. Neri catheter is present within the urinary bladder. Significant stenosis of the spinal canal at L3-4 is present. Multilevel disc space narrowing of the lower thoracic spine and lumbar spine noted. Moderate severe L3-4 space narrowing. Spurring along the inferior endplate of L2 and L3 is present. Impression: Left basilar pulmonary nodule is present. If stability is unknown, interval follow-up in 3 months is recommended by CT of the chest to assess stability. No hydronephrosis. Lobular contour of the right lateral lower pole level is evident. Correlated with previous enhance assess stability. Consider further evaluation with ultrasound to assess possibility of a mass lesion. Alternatively, consider follow-up CT of the kidneys with contrast when the patient is able to assess for mass lesion. PQRS Compliance Statement: One or more of the following individualized dose reduction techniques were utilized for this examination: 1. Automated exposure control 2. Adjustment of the mA and/or kV according to patient size 3. Use of iterative reconstruction technique Electronically signed by: Reynaldo Jensen MD (03/18/2019 11:41 AM) [facility]
--- NOTE | 2019-03-18 12:09 | PDOC ---
[employer] PROGRESS NOTE Chief Complaint Chief Complaint Mental status change with hallucinations Hip pain History of Present Illness History of Present Illness 03/18/19 PT seen and examined in ICU Pt sitting up and feeling better, alert, and oriented. Acute dialysis lowered his Creatine to 6 from 11 WBC currently 10.7 decreased from 12.8 K+ 4.3, decrased from 5.4 DW RN Vitals/I&O Vitals/I&O: Vital Signs Date Time Temp Pulse Resp B/P (MAP) Pulse Ox O2 Delivery O2 Flow Rate FiO2 03/18/19 11:04 111 16 160/94 (116) 96 Room Air 03/18/19 08:00 98.8 98.8 I & O 03/17/19 03/17/19 03/18/19 15:00 23:00 07:00 Intake Total 50 ml 1912 ml Output Total 3000 ml 1955 ml 1600 ml Balance -3000 ml -1905 ml 312 ml Physical Exam General: Alert, Oriented X3, Cooperative Heart: Regular rate Lungs: Clear Abdomen: Normal bowel sounds Extremities: No clubbing, No cyanosis Skin: No rashes Labs Labs: Laboratory Tests Test 03/18/19 05:02 White Blood Count 10.7 x10^3/uL (4.0-11.0) Red Blood Count 6.30 x10^6/uL (4.30-5.70) Hemoglobin 17.6 g/dL (13.0-17.5) Hematocrit 51.2 % (39.0-53.0) Mean Corpuscular Volume 81 fL (79-100) Mean Corpuscular Hemoglobin 28 pg (25-35) Mean Corpuscular Hemoglobin Concent 34 g/dL (31-37) Red Cell Distribution Width 20.7 % (11.5-14.5) Platelet Count 162 x10^3/uL (140-400) Neutrophils (%) (Auto) 79 % (31-73) Lymphocytes (%) (Auto) 7 % (24-48) Monocytes (%) (Auto) 13 % (0-9) Eosinophils (%) (Auto) 1 % (0-3) Basophils (%) (Auto) 0 % (0-3) Neutrophils # (Auto) 8.4 x10^3/uL (1.8-7.7) Lymphocytes # (Auto) 0.7 x10^3/uL (1.0-4.8) Monocytes # (Auto) 1.4 x10^3/uL (0.0-1.1) Eosinophils # (Auto) 0.1 x10^3/uL (0.0-0.7) Basophils # (Auto) 0.0 x10^3/uL (0.0-0.2) Sodium Level 139 mmol/L (136-145) Potassium Level 4.3 mmol/L (3.5-5.1) Chloride Level 101 mmol/L (98-107) Carbon Dioxide Level 27 mmol/L (21-32) Anion Gap 11 (6-14) Blood Urea Nitrogen 89 mg/dL (8-26) Creatinine 6.0 mg/dL (0.7-1.3) Estimated GFR (Cockcroft-Gault) 9.5 BUN/Creatinine Ratio 15 (6-20) Glucose Level 155 mg/dL (70-99) Calcium Level 8.7 mg/dL (8.5-10.1) Total Bilirubin 1.1 mg/dL (0.2-1.0) Aspartate Amino Transf (AST/SGOT) 80 U/L (15-37) Alanine Aminotransferase (ALT/SGPT) 51 U/L (16-63) Alkaline Phosphatase 190 U/L (46-116) Total Protein 6.7 g/dL (6.4-8.2) Albumin 2.0 g/dL (3.4-5.0) Albumin/Globulin Ratio 0.4 (1.0-1.7) Review of Systems Review of Systems: Denies pain Denies n/v Assessment and Plan Assessmemt and Plan Assessment Mental status change due to uremia v UTI with sepsis Acute renal failure Rhabdomyolysis UTI Hyponatremia Hypochloremia Hyperkalemia Plan ICU monitoring PT/OT Monitor Neri cath Dialysis Awaiting urology consult Appreciate nephrology input Home meds Trend BUN and Cr IV antibiotics Comment Review of Relevant I have reviewed the following items wisam (where applicable) has been applied. Medications: Current Medications Medications (Trade) Dose Ordered Sig/Erasto Route PRN Reason Start Time Stop Time Status Last Admin Dose Admin Piperacillin Sod/ Tazobactam Sod 2.25 gm/Sodium Chloride 50 ml @ 100 mls/hr Q8HRS IV 03/17/19 14:00 9/30/19 06:19 Lactobacillus Rhamnosus (Culturelle) 1 cap BID PO 03/17/19 21:00 03/17/19 21:27 Labetalol HCl (Normodyne Iv Push) 20 mg PRN Q2HR PRN IVP HYPERTENSION 03/17/19 18:00 03/18/19 01:39 Labetalol HCl (Normodyne Iv Push) 20 mg 1X ONCE IVP 03/17/19 18:00 03/17/19 18:01 DC 03/17/19 18:01 Cyclobenzaprine HCl (Flexeril) 10 mg TID PO 03/17/19 21:00 03/17/19 21:27 POLY DELGADO III DO Mar 18, 2019 12:09
--- NOTE | 2019-03-18 12:36 | PDOC ---
SUBJECTIVE ROS Propped up in bed, states feels better this am . 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 Vital Signs Vital Signs Date Time Temp Pulse Resp B/P (MAP) Pulse Ox O2 Delivery O2 Flow Rate FiO2 03/18/19 11:04 111 16 160/94 (116) 96 Room Air 03/18/19 08:00 98.8 98.8 I & 0 Intake and Output 03/18/19 07:00 Intake Total 1962 ml Output Total 6555 ml Balance -4593 ml Intake Oral 0 ml IV Total 1962 ml Output Urine Total 6555 ml PHYSICAL EXAM Physical Exam General: NAD HEENT: moist oral mucosa, On RA Neck: supple Respiratory: unlabored breathing, not using accessory muscles Cardiovascular: Regular rate, regular rhythm Abdomen: nontender, obese : Neri catheter + Skin: no rashes or skin lesions Neuro Grossly normal DIAGNOSIS/ASSESSMENT Assessment & Plan Acute Renal failure, acute - appears to have urinary tract infection Emergent HD 03/17 , No hydronephrosis on CT scan Currently excellent UOP- Monitor for Polyuria No emergent indication for HD today- E-Lytes and acid base stable, Vol status st able Re-eval in am, Supportive care , Strict I/O, may need IVF if Polyuric, Monitor UTI- On Abx Metabolic acidosis- Resolved . Hyperkalemia - resolved Post HD HTN Hx of Nephrolithiasis- Multiple urologic interventions No Hydronephrosis, Has Neri in place ,Per urology Right renal lower pole convexity noted may represent a dromedary hump although possibly possibly elevated mass lesion is not entirely excluded. Radiologist recommend further fu , Urology on board - defer to them Discussed with Pt and at bedside COMMENT/RELEVANT DATA Meds Current Medications Medications (Trade) Dose Ordered Sig/Erasto Start Time Stop Time Status Last Admin Dose Admin Acetaminophen (Tylenol) 500 mg 1X PRN PRN 03/17/19 11:00 03/18/19 10:59 DC Albumin Human 200 ml @ 200 mls/hr 1X PRN PRN 03/17/19 11:00 03/17/19 16:59 DC Amlodipine Besylate (Norvasc) 10 mg DAILY 03/18/19 09:00 Cyclobenzaprine HCl (Flexeril) 10 mg TID 03/17/19 21:00 03/17/19 21:27 10 MG Dextrose (Dextrose 50%-Water Syringe) 25 gm 1X ONCE 03/17/19 02:00 03/17/19 02:01 DC 03/17/19 05:07 25 GM Diphenhydramine HCl (Benadryl) 25 mg 1X PRN PRN 03/17/19 11:00 03/18/19 10:59 DC Doxazosin Mesylate (Cardura) 4 mg DAILY 03/18/19 09:00 Fentanyl Citrate (Fentanyl 2ml Vial) 50 mcg 1X ONCE 03/17/19 01:30 03/17/19 01:31 DC 03/17/19 01:37 50 MCG Hydromorphone HCl (Dilaudid) 1 mg 1X ONCE 03/17/19 04:00 03/17/19 04:01 DC 03/17/19 03:27 1 MG Info (PHARMACY MONITORING -- do not chart) 1 each PRN DAILY PRN 03/17/19 11:00 Insulin Human Regular (HumuLIN R VIAL) 10 unit 1X ONCE 03/17/19 02:00 03/17/19 02:01 DC 03/17/19 05:06 10 UNIT Labetalol HCl (Normodyne Iv Push) 20 mg 1X ONCE 03/17/19 18:00 03/17/19 18:01 DC 03/17/19 18:01 20 MG Lactobacillus Rhamnosus (Culturelle) 1 cap BID 03/17/19 21:00 03/17/19 21:27 1 CAP Lidocaine/Sodium Bicarbonate (Buffered Lidocaine 1%) 6 ml 1X ONCE 03/17/19 07:30 03/17/19 07:31 DC 03/17/19 08:44 5 ML Oxycodone/ Acetaminophen (Percocet 5/325) 1 tab PRN Q6HRS PRN 03/17/19 18:00 Piperacillin Sod/ Tazobactam Sod (Zosyn Per Pharmacy) 1 each PRN DAILY PRN 03/17/19 12:15 Piperacillin Sod/ Tazobactam Sod 2.25 gm/Sodium Chloride 50 ml @ 100 mls/hr Q8HRS 03/17/19 14:00 03/18/19 06:19 100 MLS/HR Piperacillin Sod/ Tazobactam Sod 3.375 gm/Sodium Chloride 50 ml @ 100 mls/hr 1X ONCE 03/17/19 02:00 03/17/19 02:29 DC 03/17/19 02:00 100 MLS/HR Sodium Bicarbonate 150 meq/Dextrose 1,150 ml @ 150 mls/hr Q7H40M 03/17/19 04:00 03/18/19 06:19 150 MLS/HR Sodium Polystyrene Sulfonate (Kayexalate) 30 gm 1X ONCE 03/17/19 02:00 03/17/19 02:01 DC Sodium Bicarbonate (Sodium Bicarb Adult 8.4% Syr) 50 meq 1X ONCE 03/17/19 02:00 03/17/19 02:01 DC 03/17/19 05:03 50 MEQ Sodium Chloride 1,000 ml @ 400 mls/hr Q2H30M PRN 03/17/19 10:58 03/17/19 22:57 DC Sodium Chloride (Normal Saline Flush) 10 ml 1X PRN PRN 03/17/19 11:00 03/18/19 10:59 DC Vancomycin HCl 250 ml @ 250 mls/hr 1X ONCE 03/17/19 02:00 03/17/19 02:59 DC 03/17/19 04:36 250 MLS/HR Lab Laboratory Tests Test 03/18/19 05:02 White Blood Count 10.7 x10^3/uL (4.0-11.0) Red Blood Count 6.30 x10^6/uL (4.30-5.70) Hemoglobin 17.6 g/dL (13.0-17.5) Hematocrit 51.2 % (39.0-53.0) Mean Corpuscular Volume 81 fL (79-100) Mean Corpuscular Hemoglobin 28 pg (25-35) Mean Corpuscular Hemoglobin Concent 34 g/dL (31-37) Red Cell Distribution Width 20.7 % (11.5-14.5) Platelet Count 162 x10^3/uL (140-400) Neutrophils (%) (Auto) 79 % (31-73) Lymphocytes (%) (Auto) 7 % (24-48) Monocytes (%) (Auto) 13 % (0-9) Eosinophils (%) (Auto) 1 % (0-3) Basophils (%) (Auto) 0 % (0-3) Neutrophils # (Auto) 8.4 x10^3/uL (1.8-7.7) Lymphocytes # (Auto) 0.7 x10^3/uL (1.0-4.8) Monocytes # (Auto) 1.4 x10^3/uL (0.0-1.1) Eosinophils # (Auto) 0.1 x10^3/uL (0.0-0.7) Basophils # (Auto) 0.0 x10^3/uL (0.0-0.2) Sodium Level 139 mmol/L (136-145) Potassium Level 4.3 mmol/L (3.5-5.1) Chloride Level 101 mmol/L (98-107) Carbon Dioxide Level 27 mmol/L (21-32) Anion Gap 11 (6-14) Blood Urea Nitrogen 89 mg/dL (8-26) Creatinine 6.0 mg/dL (0.7-1.3) Estimated GFR (Cockcroft-Gault) 9.5 BUN/Creatinine Ratio 15 (6-20) Glucose Level 155 mg/dL (70-99) Calcium Level 8.7 mg/dL (8.5-10.1) Total Bilirubin 1.1 mg/dL (0.2-1.0) Aspartate Amino Transf (AST/SGOT) 80 U/L (15-37) Alanine Aminotransferase (ALT/SGPT) 51 U/L (16-63) Alkaline Phosphatase 190 U/L (46-116) Total Protein 6.7 g/dL (6.4-8.2) Albumin 2.0 g/dL (3.4-5.0) Albumin/Globulin Ratio 0.4 (1.0-1.7) Results All relevant outside records, renal labs, imaging studies, telemetry/EKG's were reviewed. JAYLAN MEDINA MD Mar 18, 2019 12:36
[2019-03-18] MEDS: DOXAZOSIN MESYLATE 4 MG TABLET. PO SCH (13:11)
[2019-03-18] MEDS: LACTOBACILLUS RHAMNOSUS GG 1 CAPSULE. PO SCH ×2 (13:11→21:22)
[2019-03-18] MEDS: CYCLOBENZAPRINE 10 MG TABLET. PO SCH ×3 (13:11→21:22)
[2019-03-18] MEDS: amLODIPine BESYLATE 10 MG TABLET PO SCH (13:12)
[2019-03-19 03:00] VITALS: BP 137/85
[2019-03-19 04:37] LABS: BASO % 0 % (0-3); EOS # 0.1 x10^3/uL (0.0-0.7); EOS % 1 % (0-3); HEMATOCRIT 49.5 % (39.0-53.0); LYMPH # 0.9 x10^3/uL (1.0-4.8); LYMPH % 10 % (24-48); MEAN CORPUSCULAR HEMOGLOBIN 28 pg (25-35); MEAN CORPUSCULAR HGB CONC 34 g/dL (31-37); MEAN CORPUSCULAR VOLUME 81 fL (79-100); MONO # 1.1 x10^3/uL (0.0-1.1); MONO % 12 % (0-9); NEUT # 7.7 x10^3/uL (1.8-7.7); NEUT % 78 % (31-73); PLATELET COUNT 152 x10^3/uL (140-400); RED BLOOD COUNT 6.08 x10^6/uL (4.30-5.70); RED CELL DISTRIBUTION WIDTH 20.4 % (11.5-14.5); WHITE BLOOD COUNT 9.9 x10^3/uL (4.0-11.0)
[2019-03-19 05:17] LABS: ALBUMIN 1.9 g/dL (3.4-5.0); ALBUMIN/GLOBULIN RATIO 0.4 (1.0-1.7); CALCIUM 8.7 mg/dL (8.5-10.1); GFR 15.2; POTASSIUM 3.6 mmol/L (3.5-5.1); TOTAL BILIRUBIN 1.1 mg/dL (0.2-1.0); TOTAL PROTEIN 6.6 g/dL (6.4-8.2)
[2019-03-19] MEDS: PIPERACILLIN/TAZOBACTAM 2.25 GM in IV NORMAL SALINE 50ML 50 ML IV SCH ×3 (06:13→21:26)
[2019-03-19 07:00] VITALS: BP 154/84
[2019-03-19] MEDS: SODIUM BICARBONATE VIAL 150 MEQ in IV DEXTROSE 5% 1,000 ML IV SCH (07:14)
--- NOTE | 2019-03-19 09:21 | PDOC ---
SUBJECTIVE ROS states sleeping ore today .Pt denies any complaints OBJECTIVE Vital Signs Vital Signs Date Time Temp Pulse Resp B/P (MAP) Pulse Ox O2 Delivery O2 Flow Rate FiO2 03/19/19 07:00 98.1 106 24 154/84 (107) 96 Room Air 98.1 I & 0 Intake and Output 03/19/19 07:00 Intake Total 4237 ml Output Total 4995 ml Balance -758 ml Intake Oral 1000 ml IV Total 3237 ml Output Urine Total 4995 ml PHYSICAL EXAM Physical Exam General: NAD HEENT: moist oral mucosa, On RA Neck: supple Respiratory: unlabored breathing, not using accessory muscles Cardiovascular: Regular rate, regular rhythm Abdomen: nontender, obese : Neri catheter + Skin: no rashes or skin lesions Neuro Grossly normal DIAGNOSIS/ASSESSMENT Assessment & Plan Acute Renal failure, acute - urinary tract infection Emergent HD 03/17 , No hydronephrosis on CT scan , Renal function improving excellent UOP- Monitor for Polyuria No emergent indication for HD today- E-Lytes and acid base stable, Vol status stable DC IV bicarb, hold off IVF if good PO intake, If Polyuric may need to restart IVF Supportive care , Strict I/O, Monitor UTI- On Abx Metabolic acidosis- Resolved . DC IV Bicarb Hyperkalemia - resolved HTN - stable, monitor Hx of Nephrolithiasis- Multiple urologic interventions No Hydronephrosis, Has Neri in place ,Per urology Right renal lower pole convexity noted may represent a dromedary hump although possibly possibly elevated mass lesion is not entirely excluded. Radiologist recommend further fu , Urology on board - defer to them Discussed with Pt and at bedside COMMENT/RELEVANT DATA Meds Current Medications Medications (Trade) Dose Ordered Sig/Erasto Start Time Stop Time Status Last Admin Dose Admin Acetaminophen (Tylenol) 500 mg 1X PRN PRN 03/17/19 11:00 03/18/19 10:59 DC Albumin Human 200 ml @ 200 mls/hr 1X PRN PRN 03/17/19 11:00 03/17/19 16:59 DC Amlodipine Besylate (Norvasc) 10 mg DAILY 03/18/19 09:00 03/18/19 13:12 10 MG Cyclobenzaprine HCl (Flexeril) 10 mg TID 03/17/19 21:00 03/18/19 21:22 10 MG Dextrose (Dextrose 50%-Water Syringe) 25 gm 1X ONCE 03/17/19 02:00 03/17/19 02:01 DC 03/17/19 05:07 25 GM Diphenhydramine HCl (Benadryl) 25 mg 1X PRN PRN 03/17/19 11:00 03/18/19 10:59 DC Doxazosin Mesylate (Cardura) 4 mg DAILY 03/18/19 09:00 03/18/19 13:11 4 MG Fentanyl Citrate (Fentanyl 2ml Vial) 50 mcg 1X ONCE 03/17/19 01:30 03/17/19 01:31 DC 03/17/19 01:37 50 MCG Hydromorphone HCl (Dilaudid) 1 mg 1X ONCE 03/17/19 04:00 03/17/19 04:01 DC 03/17/19 03:27 1 MG Info (PHARMACY MONITORING -- do not chart) 1 each PRN DAILY PRN 03/17/19 11:00 Insulin Human Regular (HumuLIN R VIAL) 10 unit 1X ONCE 03/17/19 02:00 03/17/19 02:01 DC 03/17/19 05:06 10 UNIT Labetalol HCl (Normodyne Iv Push) 20 mg 1X ONCE 03/17/19 18:00 03/17/19 18:01 DC 03/17/19 18:01 20 MG Lactobacillus Rhamnosus (Culturelle) 1 cap BID 03/17/19 21:00 03/18/19 21:22 1 CAP Lidocaine/Sodium Bicarbonate (Buffered Lidocaine 1%) 6 ml 1X ONCE 03/17/19 07:30 03/17/19 07:31 DC 03/17/19 08:44 5 ML Oxycodone/ Acetaminophen (Percocet 5/325) 1 tab PRN Q6HRS PRN 03/17/19 18:00 Piperacillin Sod/ Tazobactam Sod (Zosyn Per Pharmacy) 1 each PRN DAILY PRN 03/17/19 12:15 Piperacillin Sod/ Tazobactam Sod 2.25 gm/Sodium Chloride 50 ml @ 100 mls/hr Q8HRS 03/17/19 14:00 03/19/19 06:13 100 MLS/HR Piperacillin Sod/ Tazobactam Sod 3.375 gm/Sodium Chloride 50 ml @ 100 mls/hr 1X ONCE 03/17/19 02:00 03/17/19 02:29 DC 03/17/19 02:00 100 MLS/HR Sodium Bicarbonate 150 meq/Dextrose 1,150 ml @ 150 mls/hr Q7H40M 03/17/19 04:00 03/19/19 07:14 150 MLS/HR Sodium Polystyrene Sulfonate (Kayexalate) 30 gm 1X ONCE 03/17/19 02:00 03/17/19 02:01 DC Sodium Bicarbonate (Sodium Bicarb Adult 8.4% Syr) 50 meq 1X ONCE 03/17/19 02:00 03/17/19 02:01 DC 03/17/19 05:03 50 MEQ Sodium Chloride 1,000 ml @ 400 mls/hr Q2H30M PRN 03/17/19 10:58 03/17/19 22:57 DC Sodium Chloride (Normal Saline Flush) 10 ml 1X PRN PRN 03/17/19 11:00 03/18/19 10:59 DC Vancomycin HCl 250 ml @ 250 mls/hr 1X ONCE 03/17/19 02:00 03/17/19 02:59 DC 03/17/19 04:36 250 MLS/HR Lab Laboratory Tests Test 03/19/19 04:10 White Blood Count 9.9 x10^3/uL (4.0-11.0) Red Blood Count 6.08 x10^6/uL (4.30-5.70) Hemoglobin 17.0 g/dL (13.0-17.5) Hematocrit 49.5 % (39.0-53.0) Mean Corpuscular Volume 81 fL (79-100) Mean Corpuscular Hemoglobin 28 pg (25-35) Mean Corpuscular Hemoglobin Concent 34 g/dL (31-37) Red Cell Distribution Width 20.4 % (11.5-14.5) Platelet Count 152 x10^3/uL (140-400) Neutrophils (%) (Auto) 78 % (31-73) Lymphocytes (%) (Auto) 10 % (24-48) Monocytes (%) (Auto) 12 % (0-9) Eosinophils (%) (Auto) 1 % (0-3) Basophils (%) (Auto) 0 % (0-3) Neutrophils # (Auto) 7.7 x10^3/uL (1.8-7.7) Lymphocytes # (Auto) 0.9 x10^3/uL (1.0-4.8) Monocytes # (Auto) 1.1 x10^3/uL (0.0-1.1) Eosinophils # (Auto) 0.1 x10^3/uL (0.0-0.7) Basophils # (Auto) 0.0 x10^3/uL (0.0-0.2) Sodium Level 140 mmol/L (136-145) Potassium Level 3.6 mmol/L (3.5-5.1) Chloride Level 99 mmol/L (98-107) Carbon Dioxide Level 31 mmol/L (21-32) Anion Gap 10 (6-14) Blood Urea Nitrogen 79 mg/dL (8-26) Creatinine 4.0 mg/dL (0.7-1.3) Estimated GFR (Cockcroft-Gault) 15.2 BUN/Creatinine Ratio 20 (6-20) Glucose Level 145 mg/dL (70-99) Calcium Level 8.7 mg/dL (8.5-10.1) Total Bilirubin 1.1 mg/dL (0.2-1.0) Aspartate Amino Transf (AST/SGOT) 74 U/L (15-37) Alanine Aminotransferase (ALT/SGPT) 64 U/L (16-63) Alkaline Phosphatase 195 U/L (46-116) Total Protein 6.6 g/dL (6.4-8.2) Albumin 1.9 g/dL (3.4-5.0) Albumin/Globulin Ratio 0.4 (1.0-1.7) Results All relevant outside records, renal labs, imaging studies, telemetry/EKG's were reviewed. JAYLAN MEDINA MD Mar 19, 2019 09:21
[2019-03-19] MEDS: LACTOBACILLUS RHAMNOSUS GG 1 CAPSULE. PO SCH ×2 (10:48→21:26)
[2019-03-19] MEDS: CYCLOBENZAPRINE 10 MG TABLET. PO SCH ×3 (10:56→21:26)
[2019-03-19] MEDS: DOXAZOSIN MESYLATE 4 MG TABLET. PO SCH (10:56)
[2019-03-19] MEDS: amLODIPine BESYLATE 10 MG TABLET PO SCH (10:56)
[2019-03-19 11:00] VITALS: BP 131/81
[2019-03-19] MEDS ORDERED: FLU VAX QS 2019-20 (36MOS+)/PF 0.5 ML SYRINGE. VAX IM ONE (11:30)
--- NOTE | 2019-03-19 11:48 | PDOC ---
[employer] PROGRESS NOTE Chief Complaint Chief Complaint Mental status change with hallucinations Hip pain History of Present Illness History of Present Illness 03/19/19 Pt seen and examined in the ICU Pt sitting in chair. Pt is alert and oriented. He knew the current year is 2018 Accompanied by Charts and labs reviewed Potassium was 3.6, decreased from 4.3 BUN was 79, down from 89 Cr was 4, down from 6 03/18/19 PT seen and examined in ICU Pt sitting up and feeling better, alert, and oriented. Acute dialysis lowered his Creatine to 6 from 11 WBC currently 10.7 decreased from 12.8 K+ 4.3, decrased from 5.4 DW RN Vitals/I&O Vitals/I&O: Vital Signs Date Time Temp Pulse Resp B/P (MAP) Pulse Ox O2 Delivery O2 Flow Rate FiO2 03/19/19 11:00 110 24 131/81 (98) 91 Room Air 03/19/19 07:00 98.1 98.1 I & O 03/18/19 03/18/19 03/19/19 15:00 23:00 07:00 Intake Total 0 ml 550 ml 3687 ml Output Total 1445 ml 1400 ml 2150 ml Balance -1445 ml -850 ml 1537 ml Physical Exam General: Alert, Oriented X3, Cooperative Heart: Regular rate Lungs: Clear Abdomen: Normal bowel sounds Extremities: No clubbing, No cyanosis Skin: No rashes Labs Labs: Laboratory Tests Test 03/19/19 04:10 White Blood Count 9.9 x10^3/uL (4.0-11.0) Red Blood Count 6.08 x10^6/uL (4.30-5.70) Hemoglobin 17.0 g/dL (13.0-17.5) Hematocrit 49.5 % (39.0-53.0) Mean Corpuscular Volume 81 fL (79-100) Mean Corpuscular Hemoglobin 28 pg (25-35) Mean Corpuscular Hemoglobin Concent 34 g/dL (31-37) Red Cell Distribution Width 20.4 % (11.5-14.5) Platelet Count 152 x10^3/uL (140-400) Neutrophils (%) (Auto) 78 % (31-73) Lymphocytes (%) (Auto) 10 % (24-48) Monocytes (%) (Auto) 12 % (0-9) Eosinophils (%) (Auto) 1 % (0-3) Basophils (%) (Auto) 0 % (0-3) Neutrophils # (Auto) 7.7 x10^3/uL (1.8-7.7) Lymphocytes # (Auto) 0.9 x10^3/uL (1.0-4.8) Monocytes # (Auto) 1.1 x10^3/uL (0.0-1.1) Eosinophils # (Auto) 0.1 x10^3/uL (0.0-0.7) Basophils # (Auto) 0.0 x10^3/uL (0.0-0.2) Sodium Level 140 mmol/L (136-145) Potassium Level 3.6 mmol/L (3.5-5.1) Chloride Level 99 mmol/L (98-107) Carbon Dioxide Level 31 mmol/L (21-32) Anion Gap 10 (6-14) Blood Urea Nitrogen 79 mg/dL (8-26) Creatinine 4.0 mg/dL (0.7-1.3) Estimated GFR (Cockcroft-Gault) 15.2 BUN/Creatinine Ratio 20 (6-20) Glucose Level 145 mg/dL (70-99) Calcium Level 8.7 mg/dL (8.5-10.1) Total Bilirubin 1.1 mg/dL (0.2-1.0) Aspartate Amino Transf (AST/SGOT) 74 U/L (15-37) Alanine Aminotransferase (ALT/SGPT) 64 U/L (16-63) Alkaline Phosphatase 195 U/L (46-116) Total Protein 6.6 g/dL (6.4-8.2) Albumin 1.9 g/dL (3.4-5.0) Albumin/Globulin Ratio 0.4 (1.0-1.7) Review of Systems Review of Systems: Pt denies fever Pt denies IVERSON Assessment and Plan Assessmemt and Plan Problems Medical Problems: (1) Acute renal failure Status: Acute (2) Altered level of consciousness Status: Acute (3) Elevated liver function tests Status: Acute (4) Hyperkalemia Status: Acute (5) Hypermagnesemia Status: Acute (6) Hypoalbuminemia Status: Acute (7) Hypochloremia Status: Acute (8) Hyponatremia Status: Acute (9) Metabolic acidosis Status: Acute (10) Rhabdomyolysis Status: Acute (11) Uremia Status: Acute (12) Urinary tract infection Status: Acute Assessment Mental status change due to uremia v UTI with sepsis Acute renal failure Rhabdomyolysis UTI Hyponatremia Hypochloremia Hyperkalemia Plan ICU monitoring. Transfer to monitoring floor PT/OT Monitor Neri cath Dialysis Appreciate urology input Appreciate nephrology input Home meds Trend BUN and Cr IV antibiotics Full code Comment Review of Relevant I have reviewed the following items wisam (where applicable) has been applied. Medications: Current Medications Medications (Trade) Dose Ordered Sig/Erasto Route PRN Reason Start Time Stop Time Status Last Admin Dose Admin Influenza Virus Vaccine Quadrival (Afluria Quad (3yr Up) Syringe) 0.5 ml ONCE ONCE VAX IM 03/19/19 11:30 03/19/19 11:31 DC 03/19/19 11:05 POLY DELGADO III DO Mar 19, 2019 11:48
--- NOTE | 2019-03-19 13:53 | NUR ---
Per PT, patient will need walker prior to leaving hospital. This RN notified SW reguarding walker and insurance change. Patient's Medicare takes effect today.
[2019-03-19 15:00] VITALS: BP 113/80
--- NOTE | 2019-03-19 15:00 | NUR ---
Patient has been received to room 576. Patient oriented to room, unit. Bed exit alarm turned on. Phone, call light within easy reach.
[2019-03-19 19:00] VITALS: BP 123/80
[2019-03-19] MEDS: oxyCODONE/APAP 5/325 1 TAB TABLET PO PRN (21:55)
[2019-03-19 23:00] VITALS: BP 139/91
[2019-03-20 03:00] VITALS: BP 134/89
[2019-03-20] MEDS: oxyCODONE/APAP 5/325 1 TAB TABLET PO PRN ×3 (04:16→21:26)
[2019-03-20 04:40] LABS: BASO % 0 % (0-3); EOS # 0.3 x10^3/uL (0.0-0.7); EOS % 2 % (0-3); HEMATOCRIT 51.7 % (39.0-53.0); HEMOGLOBIN 17.4 g/dL (13.0-17.5); LYMPH # 1.3 x10^3/uL (1.0-4.8); LYMPH % 12 % (24-48); MEAN CORPUSCULAR HEMOGLOBIN 28 pg (25-35); MEAN CORPUSCULAR HGB CONC 34 g/dL (31-37); MEAN CORPUSCULAR VOLUME 83 fL (79-100); MONO # 0.9 x10^3/uL (0.0-1.1); MONO % 9 % (0-9); NEUT # 8.1 x10^3/uL (1.8-7.7); NEUT % 77 % (31-73); PLATELET COUNT 164 x10^3/uL (140-400); RED BLOOD COUNT 6.22 x10^6/uL (4.30-5.70); RED CELL DISTRIBUTION WIDTH 19.7 % (11.5-14.5); WHITE BLOOD COUNT 10.6 x10^3/uL (4.0-11.0)
[2019-03-20 04:57] LABS: ALBUMIN 2.2 g/dL (3.4-5.0); ALBUMIN/GLOBULIN RATIO 0.6 (1.0-1.7); CALCIUM 8.6 mg/dL (8.5-10.1); CREATININE 2.9 mg/dL (0.7-1.3); POTASSIUM 3.6 mmol/L (3.5-5.1); TOTAL BILIRUBIN 1.1 mg/dL (0.2-1.0); TOTAL PROTEIN 5.9 g/dL (6.4-8.2)
[2019-03-20] MEDS: PIPERACILLIN/TAZOBACTAM 2.25 GM in IV NORMAL SALINE 50ML 50 ML IV SCH ×4 (04:58→23:17)
[2019-03-20 07:00] VITALS: BP 106/78
--- NOTE | 2019-03-20 08:20 | PDOC ---
PROGRESS NOTES Chief Complaint Chief Complaint IMPRESSION Mental status change with hallucinations , RESOLVED Hip pain Assessment Mental status change due to uremia v UTI with sepsis Acute renal failure Rhabdomyolysis UTI Hyponatremia Hypochloremia Hyperkalemia GAIT INSTABILITY History of Present Illness History of Present Illness 03/20/19 Pt seen and examined BEDSIDE, WORKING WITH PT Pt is alert and oriented. He knew the current year is 2018 Charts and labs reviewed Potassium was 3.6, decreased from 4.3 BUN was 66, down from 89 Cr was 2.9 , down from 6 Right renal lower pole convexity noted may represent a dromedary hump although possibly possibly elevated mass lesion is not entirely excluded. 03/18/19 PT seen and examined in ICU Pt sitting up and feeling better, alert, and oriented. Acute dialysis lowered his Creatine to 6 from 11 WBC currently 10.7 decreased from 12.8 K+ 4.3, decrased from 5.4 DW RN Vitals Vitals Vital Signs Date Time Temp Pulse Resp B/P (MAP) Pulse Ox O2 Delivery O2 Flow Rate FiO2 03/20/19 07:00 98.4 105 16 106/78 (87) 99 Room Air 98.4 Physical Exam General: Alert, Oriented X3, Cooperative, No acute distress Heart: Regular rate, Normal S1 Lungs: Clear Abdomen: Normal bowel sounds, Soft, No tenderness Extremities: No clubbing, No cyanosis Skin: No rashes Labs LABS PATIENT: TONG COHEN ACCT: [id number] LOC: [address] [place] [address] U: [id number] AGE/SX: 63/M ROOM: 576 RE03/17/[address]: POLY DELGADO III DO : 1955 BED: 1 DIS: STATUS: ADM IN TLOC: SPEC #: [id number] [facility]: 03/17/19 STATUS: RES REQ #: [id number] RECD: 03/17/[address] [facility] [address]: JENNIFER CHRISTIE MD SOURCE: BLOOD ENTR: 03/17/[address] [facility] [address]: CLYDE FERNANDEZ [facility]: ORDERED: BCULT Procedure Result BLOOD CULTURE Preliminary NO GROWTH AFTER 3 DAYS Laboratory Tests Test 03/20/19 04:30 White Blood Count 10.6 x10^3/uL (4.0-11.0) Red Blood Count 6.22 x10^6/uL (4.30-5.70) Hemoglobin 17.4 g/dL (13.0-17.5) Hematocrit 51.7 % (39.0-53.0) Mean Corpuscular Volume 83 fL (79-100) Mean Corpuscular Hemoglobin 28 pg (25-35) Mean Corpuscular Hemoglobin Concent 34 g/dL (31-37) Red Cell Distribution Width 19.7 % (11.5-14.5) Platelet Count 164 x10^3/uL (140-400) Neutrophils (%) (Auto) 77 % (31-73) Lymphocytes (%) (Auto) 12 % (24-48) Monocytes (%) (Auto) 9 % (0-9) Eosinophils (%) (Auto) 2 % (0-3) Basophils (%) (Auto) 0 % (0-3) Neutrophils # (Auto) 8.1 x10^3/uL (1.8-7.7) Lymphocytes # (Auto) 1.3 x10^3/uL (1.0-4.8) Monocytes # (Auto) 0.9 x10^3/uL (0.0-1.1) Eosinophils # (Auto) 0.3 x10^3/uL (0.0-0.7) Basophils # (Auto) 0.0 x10^3/uL (0.0-0.2) Sodium Level 143 mmol/L (136-145) Potassium Level 3.6 mmol/L (3.5-5.1) Chloride Level 103 mmol/L (98-107) Carbon Dioxide Level 28 mmol/L (21-32) Anion Gap 12 (6-14) Blood Urea Nitrogen 66 mg/dL (8-26) Creatinine 2.9 mg/dL (0.7-1.3) Estimated GFR (Cockcroft-Gault) 22.0 BUN/Creatinine Ratio 23 (6-20) Glucose Level 124 mg/dL (70-99) Calcium Level 8.6 mg/dL (8.5-10.1) Total Bilirubin 1.1 mg/dL (0.2-1.0) Aspartate Amino Transf (AST/SGOT) 78 U/L (15-37) Alanine Aminotransferase (ALT/SGPT) 90 U/L (16-63) Alkaline Phosphatase 214 U/L (46-116) Total Protein 5.9 g/dL (6.4-8.2) Albumin 2.2 g/dL (3.4-5.0) Albumin/Globulin Ratio 0.6 (1.0-1.7) Assessment and Plan Assessmemt and Plan Problems Medical Problems: (1) Acute renal failure Status: Acute (2) Altered level of consciousness Status: Acute (3) Elevated liver function tests Status: Acute (4) Hyperkalemia Status: Acute (5) Hypermagnesemia Status: Acute (6) Hypoalbuminemia Status: Acute (7) Hypochloremia Status: Acute (8) Hyponatremia Status: Acute (9) Metabolic acidosis Status: Acute (10) Rhabdomyolysis Status: Acute (11) Uremia Status: Acute (12) Urinary tract infection Status: Acute Walking Distances For KU Functional Tool * 101'-150' Number of KU Functional Outcomes Tool Questions Answered * 4 KU Functional Outcomes Tool Score * 4.0 Testing considered to assess G code/modifier * KU Functional Outcomes Patient Stated Goal * return home Rehab Potential to Achieve Goals * Good Learning Preferences * One-on-One Instruction * Demonstration * Discussion Factors Facilitating Goal Achievement * Motivation level * Supportive caregiver * Prior level of function * Response to training Problem List (body system elements) * Impaired fnctnl mobility * Heart Rate * Strength * Blood Pressure * Obesity * Balance * Respiration/perfusion * Coordination * Knowledge-safe techniques Clinical Presentation * Evolving Evaluation Complexity Level * Moderate Complexity Pt/caregiver agrees with plan of care/goals * Yes Patient condition at conclusion of therapy * Pt in chair * Call light in reach * Phone in reach * PtIn no apparent distress * Pt denies further needs * Visitor with patient Communicated Patient Care With (Name, Title) * Sherrell RN; Demi OSWALD Goal 1 - Bed Mobility Assistance Required * Independent Goal 1 Assessment * Appropriate - Continue Goal 2 - Transfers Assistance Required * Independent Goal 2 - Transfer Type * Sit to Stand Goal 2 Assessment * Appropriate - Continue Goal 3 - Ambulation Assistance Required * Independent Goal 3 - Ambulation Distance * 250' Goal 3 - Ambulation Device * Roller Walker Goal 3 Assessment * Appropriate - Continue Goal 4 - Stairs Assistance Required * Contact Guard Assist Goal 4 - Number of Stairs * 5-9 Goal 4 - Device on Stairs * Rail on Right Goal 4 Assessment * Appropriate - Continue Treatment Plan * Bed Mobility Training * Transfer training * Gait Training * Dynamic Balance Training Frequency of Treatment Expected * 7 visits/week Duration of Treatment Expected * 2 weeks Discharge Recommendations * Home with Assistance Discharge Recommendation - DME * Rolling Walker needed * in order to complete ADLs * and ambulation safely Discharge Recommendation Comments * Will continue to assess for discharge needs Comment Review of Relevant I have reviewed the following items wisam (where applicable) has been applied. Labs Laboratory Tests Test 03/19/19 04:10 03/20/19 04:30 White Blood Count 9.9 x10^3/uL (4.0-11.0) 10.6 x10^3/uL (4.0-11.0) Red Blood Count 6.08 x10^6/uL (4.30-5.70) 6.22 x10^6/uL (4.30-5.70) Hemoglobin 17.0 g/dL (13.0-17.5) 17.4 g/dL (13.0-17.5) Hematocrit 49.5 % (39.0-53.0) 51.7 % (39.0-53.0) Mean Corpuscular Volume 81 fL (79-100) 83 fL (79-100) Mean Corpuscular Hemoglobin 28 pg (25-35) 28 pg (25-35) Mean Corpuscular Hemoglobin Concent 34 g/dL (31-37) 34 g/dL (31-37) Red Cell Distribution Width 20.4 % (11.5-14.5) 19.7 % (11.5-14.5) Platelet Count 152 x10^3/uL (140-400) 164 x10^3/uL (140-400) Neutrophils (%) (Auto) 78 % (31-73) 77 % (31-73) Lymphocytes (%) (Auto) 10 % (24-48) 12 % (24-48) Monocytes (%) (Auto) 12 % (0-9) 9 % (0-9) Eosinophils (%) (Auto) 1 % (0-3) 2 % (0-3) Basophils (%) (Auto) 0 % (0-3) 0 % (0-3) Neutrophils # (Auto) 7.7 x10^3/uL (1.8-7.7) 8.1 x10^3/uL (1.8-7.7) Lymphocytes # (Auto) 0.9 x10^3/uL (1.0-4.8) 1.3 x10^3/uL (1.0-4.8) Monocytes # (Auto) 1.1 x10^3/uL (0.0-1.1) 0.9 x10^3/uL (0.0-1.1) Eosinophils # (Auto) 0.1 x10^3/uL (0.0-0.7) 0.3 x10^3/uL (0.0-0.7) Basophils # (Auto) 0.0 x10^3/uL (0.0-0.2) 0.0 x10^3/uL (0.0-0.2) Sodium Level 140 mmol/L (136-145) 143 mmol/L (136-145) Potassium Level 3.6 mmol/L (3.5-5.1) 3.6 mmol/L (3.5-5.1) Chloride Level 99 mmol/L (98-107) 103 mmol/L (98-107) Carbon Dioxide Level 31 mmol/L (21-32) 28 mmol/L (21-32) Anion Gap 10 (6-14) 12 (6-14) Blood Urea Nitrogen 79 mg/dL (8-26) 66 mg/dL (8-26) Creatinine 4.0 mg/dL (0.7-1.3) 2.9 mg/dL (0.7-1.3) Estimated GFR (Cockcroft-Gault) 15.2 22.0 BUN/Creatinine Ratio 20 (6-20) 23 (6-20) Glucose Level 145 mg/dL (70-99) 124 mg/dL (70-99) Calcium Level 8.7 mg/dL (8.5-10.1) 8.6 mg/dL (8.5-10.1) Total Bilirubin 1.1 mg/dL (0.2-1.0) 1.1 mg/dL (0.2-1.0) Aspartate Amino Transf (AST/SGOT) 74 U/L (15-37) 78 U/L (15-37) Alanine Aminotransferase (ALT/SGPT) 64 U/L (16-63) 90 U/L (16-63) Alkaline Phosphatase 195 U/L (46-116) 214 U/L (46-116) Total Protein 6.6 g/dL (6.4-8.2) 5.9 g/dL (6.4-8.2) Albumin 1.9 g/dL (3.4-5.0) 2.2 g/dL (3.4-5.0) Albumin/Globulin Ratio 0.4 (1.0-1.7) 0.6 (1.0-1.7) Laboratory Tests Test 03/20/19 04:30 White Blood Count 10.6 x10^3/uL (4.0-11.0) Red Blood Count 6.22 x10^6/uL (4.30-5.70) Hemoglobin 17.4 g/dL (13.0-17.5) Hematocrit 51.7 % (39.0-53.0) Mean Corpuscular Volume 83 fL (79-100) Mean Corpuscular Hemoglobin 28 pg (25-35) Mean Corpuscular Hemoglobin Concent 34 g/dL (31-37) Red Cell Distribution Width 19.7 % (11.5-14.5) Platelet Count 164 x10^3/uL (140-400) Neutrophils (%) (Auto) 77 % (31-73) Lymphocytes (%) (Auto) 12 % (24-48) Monocytes (%) (Auto) 9 % (0-9) Eosinophils (%) (Auto) 2 % (0-3) Basophils (%) (Auto) 0 % (0-3) Neutrophils # (Auto) 8.1 x10^3/uL (1.8-7.7) Lymphocytes # (Auto) 1.3 x10^3/uL (1.0-4.8) Monocytes # (Auto) 0.9 x10^3/uL (0.0-1.1) Eosinophils # (Auto) 0.3 x10^3/uL (0.0-0.7) Basophils # (Auto) 0.0 x10^3/uL (0.0-0.2) Sodium Level 143 mmol/L (136-145) Potassium Level 3.6 mmol/L (3.5-5.1) Chloride Level 103 mmol/L (98-107) Carbon Dioxide Level 28 mmol/L (21-32) Anion Gap 12 (6-14) Blood Urea Nitrogen 66 mg/dL (8-26) Creatinine 2.9 mg/dL (0.7-1.3) Estimated GFR (Cockcroft-Gault) 22.0 BUN/Creatinine Ratio 23 (6-20) Glucose Level 124 mg/dL (70-99) Calcium Level 8.6 mg/dL (8.5-10.1) Total Bilirubin 1.1 mg/dL (0.2-1.0) Aspartate Amino Transf (AST/SGOT) 78 U/L (15-37) Alanine Aminotransferase (ALT/SGPT) 90 U/L (16-63) Alkaline Phosphatase 214 U/L (46-116) Total Protein 5.9 g/dL (6.4-8.2) Albumin 2.2 g/dL (3.4-5.0) Albumin/Globulin Ratio 0.6 (1.0-1.7) Microbiology 03/17/19 Blood Culture - Preliminary, Resulted NO GROWTH AFTER 2 DAYS 03/17/19 Urine Culture - Preliminary, Resulted 03/17/19 Urine Culture Result 1 (GERARD) - Preliminary, Resulted Medications Current Medications Sodium Chloride 1,000 ml @ 1,000 mls/hr 1X ONCE IV Last administered on 03/17/19at 01:36; Start 03/17/19 at 01:30; Stop 03/17/19 at 02:29; Status DC Fentanyl Citrate (Fentanyl 2ml Vial) 50 mcg 1X ONCE IV Last administered on 03/17/19at 01:37; Start 03/17/19 at 01:30; Stop 03/17/19 at 01:31; Status DC Sodium Chloride 1,000 ml @ 1,000 mls/hr 1X ONCE IV Last administered on 03/17/19at 02:00; Start 03/17/19 at 02:00; Stop 03/17/19 at 02:59; Status DC Piperacillin Sod/ Tazobactam Sod 3.375 gm/Sodium Chloride 50 ml @ 100 mls/hr 1X ONCE IV Last administered on 03/17/19at 02:00; Start 03/17/19 at 02:00; Stop 03/17/19 at 02:29; Status DC Vancomycin HCl 250 ml @ 250 mls/hr 1X ONCE IV Last administered on 03/17/19at 04:36; Start 03/17/19 at 02:00; Stop 03/17/19 at 02:59; Status DC Sodium Bicarbonate (Sodium Bicarb Adult 8.4% Syr) 50 meq 1X ONCE IV Last administered on 03/17/19at 05:03; Start 03/17/19 at 02:00; Stop 03/17/19 at 02:01; Status DC Dextrose (Dextrose 50%-Water Syringe) 25 gm 1X ONCE IV Last administered on 03/17/19at 05:07; Start 03/17/19 at 02:00; Stop 03/17/19 at 02:01; Status DC Insulin Human Regular (HumuLIN R VIAL) 10 unit 1X ONCE IV Last administered on 03/17/19at 05:06; Start 03/17/19 at 02:00; Stop 03/17/19 at 02:01; Status DC Sodium Polystyrene Sulfonate (Kayexalate) 30 gm 1X ONCE PO ; Start 03/17/19 at 02:00; Stop 03/17/19 at 02:01; Status DC Sodium Bicarbonate 150 meq/Dextrose 1,150 ml @ 150 mls/hr Q7H40M IV Last administered on 03/19/19at 07:14; Start 03/17/19 at 04:00; Stop 03/19/19 at 10:58; Status DC Hydromorphone HCl (Dilaudid) 1 mg 1X ONCE IV Last administered on 03/17/19at 03:27; Start 03/17/19 at 04:00; Stop 03/17/19 at 04:01; Status DC Lidocaine/Sodium Bicarbonate (Buffered Lidocaine 1%) 6 ml 1X ONCE INJ Last administered on 03/17/19at 08:44; Start 03/17/19 at 07:30; Stop 03/17/19 at 07:31; Status DC Sodium Chloride 1,000 ml @ 1,000 mls/hr Q1H PRN IV hypotension; Start 03/17/19 at 10:58; Stop 03/17/19 at 16:57; Status DC Albumin Human 200 ml @ 200 mls/hr 1X PRN PRN IV Hypotension; Start 03/17/19 at 11:00; Stop 03/17/19 at 16:59; Status DC Acetaminophen (Tylenol) 500 mg 1X PRN PRN PO MILD PAIN / TEMP; Start 03/17/19 at 11:00; Stop 03/18/19 at 10:59; Status DC Diphenhydramine HCl (Benadryl) 25 mg 1X PRN PRN IV ITCHING; Start 03/17/19 at 11:00; Stop 03/18/19 at 10:59; Status DC Diphenhydramine HCl (Benadryl) 25 mg 1X PRN PRN IV ITCHING; Start 03/17/19 at 11:00; Stop 03/18/19 at 10:59; Status DC Sodium Chloride (Normal Saline Flush) 10 ml 1X PRN PRN IV AP 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; Start 03/17/19 at 11:00; Stop 03/18/19 at 10:59; Status DC Sodium Chloride (Normal Saline Flush) 10 ml 1X PRN PRN IV RECONCILIATION SPECIALIST 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; Start 03/17/19 at 11:00; Stop 03/18/19 at 10:59; Status DC Sodium Chloride 1,000 ml @ 400 mls/hr Q2H30M PRN IV PATENCY; Start 03/17/19 at 10:58; Stop 03/17/19 at 22:57; Status DC Info (PHARMACY MONITORING -- do not chart) 1 each PRN DAILY PRN MC SEE C OMMENTS; Start 03/17/19 at 11:00 Piperacillin Sod/ Tazobactam Sod (Zosyn Per Pharmacy) 1 each PRN DAILY PRN MC SEE COMMENTS; Start 03/17/19 at 12:15 Piperacillin Sod/ Tazobactam Sod 2.25 gm/Sodium Chloride 50 ml @ 100 mls/hr Q8HRS IV Last administered on 03/20/19at 04:58; Start 03/17/19 at 14:00 Lactobacillus Rhamnosus (Culturelle) 1 cap BID PO Last administered on 03/19/19at 21:26; Start 03/17/19 at 21:00 Labetalol HCl (Normodyne Iv Push) 20 mg PRN Q2HR PRN IVP HYPERTENSION Last administered on 03/18/19at 01:39; Start 03/17/19 at 18:00 Labetalol HCl (Normodyne Iv Push) 20 mg 1X ONCE IVP Last administered on 03/17/19at 18:01; Start 03/17/19 at 18:00; Stop 03/17/19 at 18:01; Status DC Cyclobenzaprine HCl (Flexeril) 10 mg TID PO Last administered on 03/19/19at 21:26; Start 03/17/19 at 21:00 Doxazosin Mesylate (Cardura) 4 mg DAILY PO Last administered on 03/19/19at 10:56; Start 03/18/19 at 09:00 Oxycodone/ Acetaminophen (Percocet 5/325) 1 tab PRN Q6HRS PRN PO PAIN SEVERE Last administered on 03/20/19at 04:16; Start 03/17/19 at 18:00 Amlodipine Besylate (Norvasc) 10 mg DAILY PO Last administered on 03/19/19at 10:56; Start 03/18/19 at 09:00 Influenza Virus Vaccine Quadrival (Afluria Quad 2019-20 (3yr Up) Syringe) 0.5 ml ONCE ONCE VAX IM Last administered on 03/19/19at 11:05; Start 03/19/19 at 11:30; Stop 03/19/19 at 11:31; Status DC Active Scripts Active Reported Cyclobenzaprine Hcl 10 Mg Tablet 1 Tab PO TID Tribenzor 40-10-25 Mg Tablet (Olmesartan/Amlodipin/Hcthiazid) 1 Each Tablet 1 Tab PO DAILY Oxycodone-Acetaminophen 5-325 (Oxycodone Hcl/Acetaminophen) 1 Each Tablet 1 Each PO PRN Q6HRS PRN Doxazosin Mesylate 4 Mg Tablet 1 Tab PO DAILY Vitals/I & O Vital Sign - Last 24 Hours 03/19/19 03/19/19 03/19/19 03/19/19 10:56 10:56 11:00 15:00 Temp 98.8 98.8 Pulse 110 110 110 113 Resp 24 16 B/P (MAP) 131/81 131/81 131/81 (98) 113/80 (91) Pulse Ox 91 91 O2 Delivery Room Air Room Air 03/19/19 03/19/19 03/19/19 03/19/19 19:00 20:00 21:55 22:55 Temp 97.6 97.6 Pulse 114 Resp 16 18 18 B/P (MAP) 123/80 (94) Pulse Ox 95 95 95 O2 Delivery Room Air Room Air Room Air Room Air 03/19/19 03/20/19 03/20/19 03/20/19 23:00 03:00 04:16 07:00 Temp 98.7 98.7 98.4 98.7 98.7 98.4 Pulse 99 101 105 Resp 16 16 18 16 B/P (MAP) 139/91 (107) 134/89 (104) 106/78 (87) Pulse Ox 94 100 94 99 O2 Delivery Room Air Room Air Room Air Room Air Intake and Output 03/19/19 03/19/19 03/20/19 15:00 23:00 07:00 Intake Total 900 ml 1254 ml 290 ml Output Total 750 ml 500 ml 1500 ml Balance 150 ml 754 ml -1210 ml Nutrition Consultation Dietary Evaluation: Recommendations by RD: Increase Calorie Intake, Protein supplementation Comments: Continue w/renal diet REC glucerna (chocolate) w/lunch Expected Outcomes/Goals: PO intake to meet >75% est needs Interpretation of weight loss: >5% in 1 month Malnutrition Findings: Food and Nutrition Intake (Sev: <50% est energy req 5days Weight Status: Obese CAIO SCHOFIELD MD Mar 20, 2019 08:20
[2019-03-20 11:00] VITALS: BP 148/87
--- NOTE | 2019-03-20 11:12 | PDOC ---
SUBJECTIVE ROS Propped up in bed, brushing teeth , denies any complaints. states he is not feeling well- no specific complaints Not eating much per but good Fluid intake. Pt wants to know if he can go home OBJECTIVE Vital Signs Vital Signs Date Time Temp Pulse Resp B/P (MAP) Pulse Ox O2 Delivery O2 Flow Rate FiO2 03/20/19 07:00 98.4 105 16 106/78 (87) 99 Room Air 98.4 I & 0 Intake and Output 03/20/19 06:59 Intake Total 2444 ml Output Total 2750 ml Balance -306 ml Intake Oral 1500 ml IV Total 944 ml Output Urine Total 2750 ml PHYSICAL EXAM Physical Exam General: NAD HEENT: moist oral mucosa, On RA Neck: supple Respiratory: unlabored breathing, not using accessory muscles Cardiovascular: Regular rate, regular rhythm Abdomen: nontender, obese : Neri catheter + Skin: no rashes or skin lesions Neuro Grossly normal DIAGNOSIS/ASSESSMENT Assessment & Plan Acute Renal failure, acute - urinary tract infection Emergent HD 03/17 , No hydronephrosis on CT scan , Renal function improving Excellent UOP, E-Lytes and acid base stable, Vol status stable Anticipate removing HDC tomorrow after reviewing labs in am UTI- On Abx Metabolic acidosis- Resolved . Hyperkalemia - resolved HTN - stable, monitor Avoid Hypotension , titrate BP meds accordingly Hx of Nephrolithiasis- Multiple urologic interventions No Hydronephrosis, Has Neri in place ,Per urology Right renal lower pole convexity noted may represent a dromedary hump although possibly possibly elevated mass lesion is not entirely excluded. Radiologist recommend further fu , Urology on board - defer to them Discussed with Pt and at bedside COMMENT/RELEVANT DATA Meds Current Medications Medications (Trade) Dose Ordered Sig/Erasto Start Time Stop Time Status Last Admin Dose Admin Acetaminophen (Tylenol) 500 mg 1X PRN PRN 03/17/19 11:00 03/18/19 10:59 DC Albumin Human 200 ml @ 200 mls/hr 1X PRN PRN 03/17/19 11:00 03/17/19 16:59 DC Amlodipine Besylate (Norvasc) 10 mg DAILY 03/18/19 09:00 03/19/19 10:56 10 MG Cyclobenzaprine HCl (Flexeril) 10 mg TID 03/17/19 21:00 03/19/19 21:26 10 MG Dextrose (Dextrose 50%-Water Syringe) 25 gm 1X ONCE 03/17/19 02:00 03/17/19 02:01 DC 03/17/19 05:07 25 GM Diphenhydramine HCl (Benadryl) 25 mg 1X PRN PRN 03/17/19 11:00 03/18/19 10:59 DC Doxazosin Mesylate (Cardura) 4 mg DAILY 03/18/19 09:00 03/19/19 10:56 4 MG Fentanyl Citrate (Fentanyl 2ml Vial) 50 mcg 1X ONCE 03/17/19 01:30 03/17/19 01:31 DC 03/17/19 01:37 50 MCG Hydromorphone HCl (Dilaudid) 1 mg 1X ONCE 03/17/19 04:00 03/17/19 04:01 DC 03/17/19 03:27 1 MG Influenza Virus Vaccine Quadrival (Afluria Quad 2019-20 (3yr Up) Syringe) 0.5 ml ONCE ONCE 03/19/19 11:30 03/19/19 11:31 DC 03/19/19 11:05 0.5 ML Info (PHARMACY MONITORING -- do not chart) 1 each PRN DAILY PRN 03/17/19 11:00 Insulin Human Regular (HumuLIN R VIAL) 10 unit 1X ONCE 03/17/19 02:00 03/17/19 02:01 DC 03/17/19 05:06 10 UNIT Labetalol HCl (Normodyne Iv Push) 20 mg 1X ONCE 03/17/19 18:00 03/17/19 18:01 DC 03/17/19 18:01 20 MG Lactobacillus Rhamnosus (Culturelle) 1 cap BID 03/17/19 21:00 03/19/19 21:26 1 CAP Lidocaine/Sodium Bicarbonate (Buffered Lidocaine 1%) 6 ml 1X ONCE 03/17/19 07:30 03/17/19 07:31 DC 03/17/19 08:44 5 ML Oxycodone/ Acetaminophen (Percocet 5/325) 1 tab PRN Q6HRS PRN 03/17/19 18:00 03/20/19 04:16 1 TAB Piperacillin Sod/ Tazobactam Sod (Zosyn Per Pharmacy) 1 each PRN DAILY PRN 03/17/19 12:15 Piperacillin Sod/ Tazobactam Sod 2.25 gm/Sodium Chloride 50 ml @ 100 mls/hr Q8HRS 03/17/19 14:00 03/20/19 04:58 100 MLS/HR Piperacillin Sod/ Tazobactam Sod 3.375 gm/Sodium Chloride 50 ml @ 100 mls/hr 1X ONCE 03/17/19 02:00 03/17/19 02:29 DC 03/17/19 02:00 100 MLS/HR Sodium Bicarbonate 150 meq/Dextrose 1,150 ml @ 150 mls/hr Q7H40M 03/17/19 04:00 03/19/19 10:58 DC 03/19/19 07:14 150 MLS/HR Sodium Polystyrene Sulfonate (Kayexalate) 30 gm 1X ONCE 03/17/19 02:00 03/17/19 02:01 DC Sodium Bicarbonate (Sodium Bicarb Adult 8.4% Syr) 50 meq 1X ONCE 03/17/19 02:00 03/17/19 02:01 DC 03/17/19 05:03 50 MEQ Sodium Chloride 1,000 ml @ 400 mls/hr Q2H30M PRN 03/17/19 10:58 03/17/19 22:57 DC Sodium Chloride (Normal Saline Flush) 10 ml 1X PRN PRN 03/17/19 11:00 03/18/19 10:59 DC Vancomycin HCl 250 ml @ 250 mls/hr 1X ONCE 03/17/19 02:00 03/17/19 02:59 DC 03/17/19 04:36 250 MLS/HR Lab Laboratory Tests Test 03/20/19 04:30 White Blood Count 10.6 x10^3/uL (4.0-11.0) Red Blood Count 6.22 x10^6/uL (4.30-5.70) Hemoglobin 17.4 g/dL (13.0-17.5) Hematocrit 51.7 % (39.0-53.0) Mean Corpuscular Volume 83 fL (79-100) Mean Corpuscular Hemoglobin 28 pg (25-35) Mean Corpuscular Hemoglobin Concent 34 g/dL (31-37) Red Cell Distribution Width 19.7 % (11.5-14.5) Platelet Count 164 x10^3/uL (140-400) Neutrophils (%) (Auto) 77 % (31-73) Lymphocytes (%) (Auto) 12 % (24-48) Monocytes (%) (Auto) 9 % (0-9) Eosinophils (%) (Auto) 2 % (0-3) Basophils (%) (Auto) 0 % (0-3) Neutrophils # (Auto) 8.1 x10^3/uL (1.8-7.7) Lymphocytes # (Auto) 1.3 x10^3/uL (1.0-4.8) Monocytes # (Auto) 0.9 x10^3/uL (0.0-1.1) Eosinophils # (Auto) 0.3 x10^3/uL (0.0-0.7) Basophils # (Auto) 0.0 x10^3/uL (0.0-0.2) Sodium Level 143 mmol/L (136-145) Potassium Level 3.6 mmol/L (3.5-5.1) Chloride Level 103 mmol/L (98-107) Carbon Dioxide Level 28 mmol/L (21-32) Anion Gap 12 (6-14) Blood Urea Nitrogen 66 mg/dL (8-26) Creatinine 2.9 mg/dL (0.7-1.3) Estimated GFR (Cockcroft-Gault) 22.0 BUN/Creatinine Ratio 23 (6-20) Glucose Level 124 mg/dL (70-99) Calcium Level 8.6 mg/dL (8.5-10.1) Total Bilirubin 1.1 mg/dL (0.2-1.0) Aspartate Amino Transf (AST/SGOT) 78 U/L (15-37) Alanine Aminotransferase (ALT/SGPT) 90 U/L (16-63) Alkaline Phosphatase 214 U/L (46-116) Total Protein 5.9 g/dL (6.4-8.2) Albumin 2.2 g/dL (3.4-5.0) Albumin/Globulin Ratio 0.6 (1.0-1.7) Results All relevant outside records, renal labs, imaging studies, telemetry/EKG's were reviewed. JAYLAN MEDINA MD Mar 20, 2019 11:12
[2019-03-20] MEDS: LACTOBACILLUS RHAMNOSUS GG 1 CAPSULE. PO SCH ×2 (11:19→21:25)
[2019-03-20] MEDS: amLODIPine BESYLATE 10 MG TABLET PO SCH (11:20)
[2019-03-20] MEDS: CYCLOBENZAPRINE 10 MG TABLET. PO SCH ×3 (11:20→21:25)
[2019-03-20] MEDS: DOXAZOSIN MESYLATE 4 MG TABLET. PO SCH (11:20)
[2019-03-20 15:00] VITALS: BP 119/61
[2019-03-20 19:00] VITALS: BP 144/73
[2019-03-20 22:57] VITALS: BP 115/69
[2019-03-21 03:00] VITALS: BP 131/72
[2019-03-21] MEDS: PIPERACILLIN/TAZOBACTAM 2.25 GM in IV NORMAL SALINE 50ML 50 ML IV SCH ×2 (04:53→12:21)
[2019-03-21 07:13] LABS: BASO % 0 % (0-3); EOS # 0.3 x10^3/uL (0.0-0.7); EOS % 3 % (0-3); HEMATOCRIT 51.5 % (39.0-53.0); HEMOGLOBIN 17.8 g/dL (13.0-17.5); LYMPH # 1.4 x10^3/uL (1.0-4.8); LYMPH % 13 % (24-48); MEAN CORPUSCULAR HEMOGLOBIN 29 pg (25-35); MEAN CORPUSCULAR HGB CONC 35 g/dL (31-37); MEAN CORPUSCULAR VOLUME 83 fL (79-100); MONO # 0.9 x10^3/uL (0.0-1.1); MONO % 8 % (0-9); NEUT # 8.3 x10^3/uL (1.8-7.7); NEUT % 76 % (31-73); PLATELET COUNT 164 x10^3/uL (140-400); RED BLOOD COUNT 6.22 x10^6/uL (4.30-5.70); RED CELL DISTRIBUTION WIDTH 19.8 % (11.5-14.5)
[2019-03-21 07:15] VITALS: BP 150/87
[2019-03-21 07:32] LABS: ALBUMIN 2.2 g/dL (3.4-5.0); ALBUMIN/GLOBULIN RATIO 0.5 (1.0-1.7); CALCIUM 9.2 mg/dL (8.5-10.1); CREATININE 2.4 mg/dL (0.7-1.3); GFR 27.4; POTASSIUM 3.6 mmol/L (3.5-5.1); TOTAL BILIRUBIN 1.4 mg/dL (0.2-1.0); TOTAL PROTEIN 6.9 g/dL (6.4-8.2)
[2019-03-21] MEDS: amLODIPine BESYLATE 10 MG TABLET PO SCH (09:02)
[2019-03-21] MEDS: DOXAZOSIN MESYLATE 4 MG TABLET. PO SCH (09:02)
[2019-03-21] MEDS: LACTOBACILLUS RHAMNOSUS GG 1 CAPSULE. PO SCH (09:02)
[2019-03-21] MEDS: CYCLOBENZAPRINE 10 MG TABLET. PO SCH (09:02)
--- NOTE | 2019-03-21 10:08 | PDOC ---
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 He knew the current year is 2018 Charts and labs reviewed Potassium was 3.6, decreased from 4.3 BUN was 66, down from 89 Cr was 2.9 , down from 6 Right renal lower pole convexity noted may represent a dromedary hump although possibly possibly elevated mass lesion is not entirely excluded. 03/18/19 PT seen and examined in ICU Pt sitting up and feeling better, alert, and oriented. Acute dialysis lowered his Creatine to 6 from 11 WBC currently 10.7 decreased from 12.8 K+ 4.3, decrased from 5.4 DW RN Vitals Vitals Vital Signs Date Time Temp Pulse Resp B/P (MAP) Pulse Ox O2 Delivery O2 Flow Rate FiO2 03/21/19 09:02 98 150/87 03/21/19 07:15 98.2 20 95 Room Air 98.2 Physical Exam General: Alert, Oriented X3, Cooperative, No acute distress Heart: Regular rate, Normal S1 Lungs: Clear Abdomen: Normal bowel sounds, Soft, No tenderness Extremities: No clubbing, No cyanosis Skin: No rashes, No significant lesion Labs LABS Laboratory Tests Test 03/21/19 05:50 White Blood Count 11.0 x10^3/uL (4.0-11.0) Red Blood Count 6.22 x10^6/uL (4.30-5.70) Hemoglobin 17.8 g/dL (13.0-17.5) Hematocrit 51.5 % (39.0-53.0) Mean Corpuscular Volume 83 fL (79-100) Mean Corpuscular Hemoglobin 29 pg (25-35) Mean Corpuscular Hemoglobin Concent 35 g/dL (31-37) Red Cell Distribution Width 19.8 % (11.5-14.5) Platelet Count 164 x10^3/uL (140-400) Neutrophils (%) (Auto) 76 % (31-73) Lymphocytes (%) (Auto) 13 % (24-48) Monocytes (%) (Auto) 8 % (0-9) Eosinophils (%) (Auto) 3 % (0-3) Basophils (%) (Auto) 0 % (0-3) Neutrophils # (Auto) 8.3 x10^3/uL (1.8-7.7) Lymphocytes # (Auto) 1.4 x10^3/uL (1.0-4.8) Monocytes # (Auto) 0.9 x10^3/uL (0.0-1.1) Eosinophils # (Auto) 0.3 x10^3/uL (0.0-0.7) Basophils # (Auto) 0.0 x10^3/uL (0.0-0.2) Sodium Level 141 mmol/L (136-145) Potassium Level 3.6 mmol/L (3.5-5.1) Chloride Level 105 mmol/L (98-107) Carbon Dioxide Level 26 mmol/L (21-32) Anion Gap 10 (6-14) Blood Urea Nitrogen 57 mg/dL (8-26) Creatinine 2.4 mg/dL (0.7-1.3) Estimated GFR (Cockcroft-Gault) 27.4 BUN/Creatinine Ratio 24 (6-20) Glucose Level 120 mg/dL (70-99) Calcium Level 9.2 mg/dL (8.5-10.1) Total Bilirubin 1.4 mg/dL (0.2-1.0) Aspartate Amino Transf (AST/SGOT) 49 U/L (15-37) Alanine Aminotransferase (ALT/SGPT) 76 U/L (16-63) Alkaline Phosphatase 184 U/L (46-116) Total Protein 6.9 g/dL (6.4-8.2) Albumin 2.2 g/dL (3.4-5.0) Albumin/Globulin Ratio 0.5 (1.0-1.7) Assessment and Plan Assessmemt and Plan Problems Medical Problems: (1) Acute renal failure Status: Acute (2) Altered level of consciousness Status: Acute (3) Elevated liver function tests Status: Acute (4) Hyperkalemia Status: Acute (5) Hypermagnesemia Status: Acute (6) Hypoalbuminemia Status: Acute (7) Hypochloremia Status: Acute (8) Hyponatremia Status: Acute (9) Metabolic acidosis Status: Acute (10) Rhabdomyolysis Status: Acute (11) Uremia Status: Acute (12) Urinary tract infection Status: Acute Comment Review of Relevant I have reviewed the following items wisam (where applicable) has been applied. Labs Laboratory Tests Test 03/20/19 04:30 03/21/19 05:50 White Blood Count 10.6 x10^3/uL (4.0-11.0) 11.0 x10^3/uL (4.0-11.0) Red Blood Count 6.22 x10^6/uL (4.30-5.70) 6.22 x10^6/uL (4.30-5.70) Hemoglobin 17.4 g/dL (13.0-17.5) 17.8 g/dL (13.0-17.5) Hematocrit 51.7 % (39.0-53.0) 51.5 % (39.0-53.0) Mean Corpuscular Volume 83 fL (79-100) 83 fL (79-100) Mean Corpuscular Hemoglobin 28 pg (25-35) 29 pg (25-35) Mean Corpuscular Hemoglobin Concent 34 g/dL (31-37) 35 g/dL (31-37) Red Cell Distribution Width 19.7 % (11.5-14.5) 19.8 % (11.5-14.5) Platelet Count 164 x10^3/uL (140-400) 164 x10^3/uL (140-400) Neutrophils (%) (Auto) 77 % (31-73) 76 % (31-73) Lymphocytes (%) (Auto) 12 % (24-48) 13 % (24-48) Monocytes (%) (Auto) 9 % (0-9) 8 % (0-9) Eosinophils (%) (Auto) 2 % (0-3) 3 % (0-3) Basophils (%) (Auto) 0 % (0-3) 0 % (0-3) Neutrophils # (Auto) 8.1 x10^3/uL (1.8-7.7) 8.3 x10^3/uL (1.8-7.7) Lymphocytes # (Auto) 1.3 x10^3/uL (1.0-4.8) 1.4 x10^3/uL (1.0-4.8) Monocytes # (Auto) 0.9 x10^3/uL (0.0-1.1) 0.9 x10^3/uL (0.0-1.1) Eosinophils # (Auto) 0.3 x10^3/uL (0.0-0.7) 0.3 x10^3/uL (0.0-0.7) Basophils # (Auto) 0.0 x10^3/uL (0.0-0.2) 0.0 x10^3/uL (0.0-0.2) Sodium Level 143 mmol/L (136-145) 141 mmol/L (136-145) Potassium Level 3.6 mmol/L (3.5-5.1) 3.6 mmol/L (3.5-5.1) Chloride Level 103 mmol/L (98-107) 105 mmol/L (98-107) Carbon Dioxide Level 28 mmol/L (21-32) 26 mmol/L (21-32) Anion Gap 12 (6-14) 10 (6-14) Blood Urea Nitrogen 66 mg/dL (8-26) 57 mg/dL (8-26) Creatinine 2.9 mg/dL (0.7-1.3) 2.4 mg/dL (0.7-1.3) Estimated GFR (Cockcroft-Gault) 22.0 27.4 BUN/Creatinine Ratio 23 (6-20) 24 (6-20) Glucose Level 124 mg/dL (70-99) 120 mg/dL (70-99) Calcium Level 8.6 mg/dL (8.5-10.1) 9.2 mg/dL (8.5-10.1) Total Bilirubin 1.1 mg/dL (0.2-1.0) 1.4 mg/dL (0.2-1.0) Aspartate Amino Transf (AST/SGOT) 78 U/L (15-37) 49 U/L (15-37) Alanine Aminotransferase (ALT/SGPT) 90 U/L (16-63) 76 U/L (16-63) Alkaline Phosphatase 214 U/L (46-116) 184 U/L (46-116) Creatine Kinase 577 U/L (39-308) Total Protein 5.9 g/dL (6.4-8.2) 6.9 g/dL (6.4-8.2) Albumin 2.2 g/dL (3.4-5.0) 2.2 g/dL (3.4-5.0) Albumin/Globulin Ratio 0.6 (1.0-1.7) 0.5 (1.0-1.7) Laboratory Tests Test 03/21/19 05:50 White Blood Count 11.0 x10^3/uL (4.0-11.0) Red Blood Count 6.22 x10^6/uL (4.30-5.70) Hemoglobin 17.8 g/dL (13.0-17.5) Hematocrit 51.5 % (39.0-53.0) Mean Corpuscular Volume 83 fL (79-100) Mean Corpuscular Hemoglobin 29 pg (25-35) Mean Corpuscular Hemoglobin Concent 35 g/dL (31-37) Red Cell Distribution Width 19.8 % (11.5-14.5) Platelet Count 164 x10^3/uL (140-400) Neutrophils (%) (Auto) 76 % (31-73) Lymphocytes (%) (Auto) 13 % (24-48) Monocytes (%) (Auto) 8 % (0-9) Eosinophils (%) (Auto) 3 % (0-3) Basophils (%) (Auto) 0 % (0-3) Neutrophils # (Auto) 8.3 x10^3/uL (1.8-7.7) Lymphocytes # (Auto) 1.4 x10^3/uL (1.0-4.8) Monocytes # (Auto) 0.9 x10^3/uL (0.0-1.1) Eosinophils # (Auto) 0.3 x10^3/uL (0.0-0.7) Basophils # (Auto) 0.0 x10^3/uL (0.0-0.2) Sodium Level 141 mmol/L (136-145) Potassium Level 3.6 mmol/L (3.5-5.1) Chloride Level 105 mmol/L (98-107) Carbon Dioxide Level 26 mmol/L (21-32) Anion Gap 10 (6-14) Blood Urea Nitrogen 57 mg/dL (8-26) Creatinine 2.4 mg/dL (0.7-1.3) Estimated GFR (Cockcroft-Gault) 27.4 BUN/Creatinine Ratio 24 (6-20) Glucose Level 120 mg/dL (70-99) Calcium Level 9.2 mg/dL (8.5-10.1) Total Bilirubin 1.4 mg/dL (0.2-1.0) Aspartate Amino Transf (AST/SGOT) 49 U/L (15-37) Alanine Aminotransferase (ALT/SGPT) 76 U/L (16-63) Alkaline Phosphatase 184 U/L (46-116) Total Protein 6.9 g/dL (6.4-8.2) Albumin 2.2 g/dL (3.4-5.0) Albumin/Globulin Ratio 0.5 (1.0-1.7) Microbiology 03/17/19 Blood Culture - Preliminary, Resulted NO GROWTH AFTER 3 DAYS 03/17/19 Urine Culture - Preliminary, Resulted 03/17/19 Urine Culture Result 1 (GERARD) - Preliminary, Resulted Medications Current Medications Sodium Chloride 1,000 ml @ 1,000 mls/hr 1X ONCE IV Last administered on 03/17/19at 01:36; Start 03/17/19 at 01:30; Stop 03/17/19 at 02:29; Status DC Fentanyl Citrate (Fentanyl 2ml Vial) 50 mcg 1X ONCE IV Last administered on 03/17/19at 01:37; Start 03/17/19 at 01:30; Stop 03/17/19 at 01:31; Status DC Sodium Chloride 1,000 ml @ 1,000 mls/hr 1X ONCE IV Last administered on 03/17/19at 02:00; Start 03/17/19 at 02:00; Stop 03/17/19 at 02:59; Status DC Piperacillin Sod/ Tazobactam Sod 3.375 gm/Sodium Chloride 50 ml @ 100 mls/hr 1X ONCE IV Last administered on 03/17/19at 02:00; Start 03/17/19 at 02:00; Stop 03/17/19 at 02:29; Status DC Vancomycin HCl 250 ml @ 250 mls/hr 1X ONCE IV Last administered on 03/17/19at 04:36; Start 03/17/19 at 02:00; Stop 03/17/19 at 02:59; Status DC Sodium Bicarbonate (Sodium Bicarb Adult 8.4% Syr) 50 meq 1X ONCE IV Last administered on 03/17/19at 05:03; Start 03/17/19 at 02:00; Stop 03/17/19 at 02:01; Status DC Dextrose (Dextrose 50%-Water Syringe) 25 gm 1X ONCE IV Last administered on 03/17/19at 05:07; Start 03/17/19 at 02:00; Stop 03/17/19 at 02:01; Status DC Insulin Human Regular (HumuLIN R VIAL) 10 unit 1X ONCE IV Last administered on 03/17/19at 05:06; Start 03/17/19 at 02:00; Stop 03/17/19 at 02:01; Status DC Sodium Polystyrene Sulfonate (Kayexalate) 30 gm 1X ONCE PO ; Start 03/17/19 at 02:00; Stop 03/17/19 at 02:01; Status DC Sodium Bicarbonate 150 meq/Dextrose 1,150 ml @ 150 mls/hr Q7H40M IV Last administered on 03/19/19at 07:14; Start 03/17/19 at 04:00; Stop 03/19/19 at 10:58; Status DC Hydromorphone HCl (Dilaudid) 1 mg 1X ONCE IV Last administered on 03/17/19at 03:27; Start 03/17/19 at 04:00; Stop 03/17/19 at 04:01; Status DC Lidocaine/Sodium Bicarbonate (Buffered Lidocaine 1%) 6 ml 1X ONCE INJ Last administered on 03/17/19at 08:44; Start 03/17/19 at 07:30; Stop 03/17/19 at 07:31; Status DC Sodium Chloride 1,000 ml @ 1,000 mls/hr Q1H PRN IV hypotension; Start 03/17/19 at 10:58; Stop 03/17/19 at 16:57; Status DC Albumin Human 200 ml @ 200 mls/hr 1X PRN PRN IV Hypotension; Start 03/17/19 at 11:00; Stop 03/17/19 at 16:59; Status DC Acetaminophen (Tylenol) 500 mg 1X PRN PRN PO MILD PAIN / TEMP; Start 03/17/19 at 11:00; Stop 03/18/19 at 10:59; Status DC Diphenhydramine HCl (Benadryl) 25 mg 1X PRN PRN IV ITCHING; Start 03/17/19 at 11:00; Stop 03/18/19 at 10:59; Status DC Diphenhydramine HCl (Benadryl) 25 mg 1X PRN PRN IV ITCHING; Start 03/17/19 at 11:00; Stop 03/18/19 at 10:59; Status DC Sodium Chloride (Normal Saline Flush) 10 ml 1X PRN PRN IV AP 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; Start 03/17/19 at 11:00; Stop 03/18/19 at 10:59; Status DC Sodium Chloride (Normal Saline Flush) 10 ml 1X PRN PRN IV 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 TEACHER 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; Start 03/17/19 at 11:00; Stop 03/18/19 at 10:59; Status DC Sodium Chloride 1,000 ml @ 400 mls/hr Q2H30M PRN IV PATENCY; Start 03/17/19 at 10:58; Stop 03/17/19 at 22:57; Status DC Info (PHARMACY MONITORING -- do not chart) 1 each PRN DAILY PRN MC SEE COMMENT S; Start 03/17/19 at 11:00 Piperacillin Sod/ Tazobactam Sod (Zosyn Per Pharmacy) 1 each PRN DAILY PRN MC SEE COMMENTS; Start 03/17/19 at 12:15 Piperacillin Sod/ Tazobactam Sod 2.25 gm/Sodium Chloride 50 ml @ 100 mls/hr Q8HRS IV Last administered on 03/20/19at 04:58; Start 03/17/19 at 14:00; Stop 03/20/19 at 13:30; Status DC Lactobacillus Rhamnosus (Culturelle) 1 cap BID PO Last administered on 03/21/19at 09:02; Start 03/17/19 at 21:00 Labetalol HCl (Normodyne Iv Push) 20 mg PRN Q2HR PRN IVP HYPERTENSION Last administered on 03/18/19at 01:39; Start 03/17/19 at 18:00 Labetalol HCl (Normodyne Iv Push) 20 mg 1X ONCE IVP Last administered on 03/17/19at 18:01; Start 03/17/19 at 18:00; Stop 03/17/19 at 18:01; Status DC Cyclobenzaprine HCl (Flexeril) 10 mg TID PO Last administered on 03/21/19 09:02; Start 03/17/19 at 21:00 Doxazosin Mesylate (Cardura) 4 mg DAILY PO Last administered on 03/21/19at 09:02; Start 03/18/19 at 09:00 Oxycodone/ Acetaminophen (Percocet 5/325) 1 tab PRN Q6HRS PRN PO PAIN SEVERE Last administered on 03/20/19at 21:26; Start 03/17/19 at 18:00 Amlodipine Besylate (Norvasc) 10 mg DAILY PO Last administered on 03/21/19 09:02; Start 03/18/19 at 09:00 Influenza Virus Vaccine Quadrival (Afluria Quad 2019-20 (3yr Up) Syringe) 0.5 ml ONCE ONCE VAX IM Last administered on 03/19/19at 11:05; Start 03/19/19 at 11:30; Stop 03/19/19 at 11:31; Status DC Piperacillin Sod/ Tazobactam Sod 2.25 gm/Sodium Chloride 50 ml @ 100 mls/hr Q6HRS IV Last administered on 03/21/19at 04:53; Start 03/20/19 at 14:00 Active Scripts Active Reported Cyclobenzaprine Hcl 10 Mg Tablet 1 Tab PO TID Tribenzor 40-10-25 Mg Tablet (Olmesartan/Amlodipin/Hcthiazid) 1 Each Tablet 1 Tab PO DAILY Oxycodone-Acetaminophen 5-325 (Oxycodone Hcl/Acetaminophen) 1 Each Tablet 1 Each PO PRN Q6HRS PRN Doxazosin Mesylate 4 Mg Tablet 1 Tab PO DAILY Vitals/I & O Vital Sign - Last 24 Hours 03/20/19 03/20/19 03/20/19 03/20/19 11:00 11:20 11:20 13:30 Temp 97.8 97.8 Pulse 107 107 107 Resp 18 B/P (MAP) 148/87 (107) 148/87 148/87 Pulse Ox 93 O2 Delivery Room Air Room Air 03/20/19 03/20/19 03/20/19 03/20/19 14:30 15:00 19:00 20:00 Temp 98.0 98.0 98.0 98.0 Pulse 106 103 Resp 16 18 B/P (MAP) 119/61 (80) 144/73 (96) Pulse Ox 97 95 O2 Delivery Room Air Room Air Room Air Room Air 03/20/19 03/20/19 03/20/19 03/21/19 21:26 22:26 22:57 03:00 Temp 98.0 98.0 Pulse 95 Resp 18 18 18 18 B/P (MAP) 115/69 (84) 131/72 (91) Pulse Ox 95 95 95 O2 Delivery Room Air Room Air Room Air Room Air 03/21/19 03/21/19 03/21/19 07:15 09:02 09:02 Temp 98.2 98.2 Pulse 98 98 98 Resp 20 B/P (MAP) 150/87 (108) 150/87 150/87 Pulse Ox 95 O2 Delivery Room Air Intake and Output 03/20/19 03/20/19 03/21/19 15:00 23:00 07:00 Intake Total 120 ml 50 ml 50 ml Output Total 1800 ml 700 ml Balance -1680 ml -650 ml 50 ml Nutrition Consultation Dietary Evaluation: Recommendations by RD: Increase Calorie Intake, Protein supplementation Comments: Continue w/renal diet REC glucerna (chocolate) w/lunch Expected Outcomes/Goals: PO intake to meet >75% est needs Interpretation of weight loss: >5% in 1 month Malnutrition Findings: Food and Nutrition Intake (Sev: <50% est energy req 5days Weight Status: Obese CAIO SCHOFIELD MD Mar 21, 2019 10:08
[2019-03-21 11:02] VITALS: BP 122/70
--- NOTE | 2019-03-21 11:55 | PDOC3 ---
Discharge Summary Date of Admission: Mar 17, 2019 Date of Discharge: Mar 21, 2019 Follow-Up: 3-5 days Admitting Diagnosis comment: discharge dx Mental status change with hallucinations , RESOLVED Hip pain Assessment Mental status change due to uremia/// UTI with sepsis Acute renal failure Rhabdomyolysis, improving UTI Hyponatremia Hypochloremia Hyperkalemia GAIT INSTABILITY Followup with urologist and research development director in [place] once home 34 min d/c planning History of Present Illness History of Present Illness 03/21/19 Pt seen and examined BEDSIDE, WORKING WITH PT Pt is alert and oriented. d/w in room Charts and labs reviewed Potassium was 3.6, decreased from 4.3 BUN was 66, down from 89 Cr was 2.4 , down from 6 Right renal lower pole convexity noted may represent a dromedary hump although possibly possibly elevated mass lesion is not entirely excluded. nephrology ok with d/c today per RN 03/18/19 PT seen and examined in ICU Pt sitting up and feeling better, alert, and oriented. Acute dialysis lowered his Creatine to 6 from 11 WBC currently 10.7 decreased from 12.8 K+ 4.3, decrased from 5.4 DW RN Vitals Vitals Vital Signs Date Time Temp Pulse Resp B/P (MAP) Pulse Ox O2 Delivery O2 Flow Rate FiO2 03/21/19 09:02 98 150/87 03/21/19 07:15 98.2 20 95 Room Air 98.2 Physical Exam General: Alert, Oriented X3, Cooperative, No acute distress Heart: Regular rate, Normal S1 Lungs: Clear Abdomen: Normal bowel sounds, Soft, No tenderness Extremities: No clubbing, No cyanosis Skin: No rashes, No significant lesion Labs FINAL DIAGNOSIS Problems Medical Problems: (1) Acute renal failure Status: Acute (2) Altered level of consciousness Status: Acute (3) Elevated liver function tests Status: Acute (4) Hyperkalemia Status: Acute (5) Hypermagnesemia Status: Acute (6) Hypoalbuminemia Status: Acute (7) Hypochloremia Status: Acute (8) Hyponatremia Status: Acute (9) Metabolic acidosis Status: Acute (10) Rhabdomyolysis Status: Acute (11) Uremia Status: Acute (12) Urinary tract infection Status: Acute Brief Hospital Course Mr. Parada is a 63 old [sex] who presented with [UTI/SEPSIS ] CONDITION AT DISCHARGE: Improved Discharge Medications Current Medications Sodium Chloride 1,000 ml @ 1,000 mls/hr 1X ONCE IV Last administered on 03/17/19at 01:36; Start 03/17/19 at 01:30; Stop 03/17/19 at 02:29; Status DC Fentanyl Citrate (Fentanyl 2ml Vial) 50 mcg 1X ONCE IV Last administered on 03/17/19at 01:37; Start 03/17/19 at 01:30; Stop 03/17/19 at 01:31; Status DC Sodium Chloride 1,000 ml @ 1,000 mls/hr 1X ONCE IV Last administered on 03/17/19at 02:00; Start 03/17/19 at 02:00; Stop 03/17/19 at 02:59; Status DC Piperacillin Sod/ Tazobactam Sod 3.375 gm/Sodium Chloride 50 ml @ 100 mls/hr 1X ONCE IV Last administered on 03/17/19at 02:00; Start 03/17/19 at 02:00; Stop 03/17/19 at 02:29; Status DC Vancomycin HCl 250 ml @ 250 mls/hr 1X ONCE IV Last administered on 03/17/19at 04:36; Start 03/17/19 at 02:00; Stop 03/17/19 at 02:59; Status DC Sodium Bicarbonate (Sodium Bicarb Adult 8.4% Syr) 50 meq 1X ONCE IV Last administered on 03/17/19at 05:03; Start 03/17/19 at 02:00; Stop 03/17/19 at 02:01; Status DC Dextrose (Dextrose 50%-Water Syringe) 25 gm 1X ONCE IV Last administered on 03/17/19at 05:07; Start 03/17/19 at 02:00; Stop 03/17/19 at 02:01; Status DC Insulin Human Regular (HumuLIN R VIAL) 10 unit 1X ONCE IV Last administered on 03/17/19at 05:06; Start 03/17/19 at 02:00; Stop 03/17/19 at 02:01; Status DC Sodium Polystyrene Sulfonate (Kayexalate) 30 gm 1X ONCE PO ; Start 03/17/19 at 02:00; Stop 03/17/19 at 02:01; Status DC Sodium Bicarbonate 150 meq/Dextrose 1,150 ml @ 150 mls/hr Q7H40M IV Last a dministered on 03/19/19at 07:14; Start 03/17/19 at 04:00; Stop 03/19/19 at 10:58; Status DC Hydromorphone HCl (Dilaudid) 1 mg 1X ONCE IV Last administered on 03/17/19at 03:27; Start 03/17/19 at 04:00; Stop 03/17/19 at 04:01; Status DC Lidocaine/Sodium Bicarbonate (Buffered Lidocaine 1%) 6 ml 1X ONCE INJ Last administered on 03/17/19at 08:44; Start 03/17/19 at 07:30; Stop 03/17/19 at 07:31; Status DC Sodium Chloride 1,000 ml @ 1,000 mls/hr Q1H PRN IV hypotension; Start 03/17/19 at 10:58; Stop 03/17/19 at 16:57; Status DC Albumin Human 200 ml @ 200 mls/hr 1X PRN PRN IV Hypotension; Start 03/17/19 at 11:00; Stop 03/17/19 at 16:59; Status DC Acetaminophen (Tylenol) 500 mg 1X PRN PRN PO MILD PAIN / TEMP; Start 03/17/19 at 11:00; Stop 03/18/19 at 10:59; Status DC Diphenhydramine HCl (Benadryl) 25 mg 1X PRN PRN IV ITCHING; Start 03/17/19 at 11:00; Stop 03/18/19 at 10:59; Status DC Diphenhydramine HCl (Benadryl) 25 mg 1X PRN PRN IV ITCHING; Start 03/17/19 at 11:00; Stop 03/18/19 at 10:59; Status DC Sodium Chloride (Normal Saline Flush) 10 ml 1X PRN PRN IV AP 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; Start 03/17/19 at 11:00; Stop 03/18/19 at 10:59; Status DC Sodium Chloride (Normal Saline Flush) 10 ml 1X PRN PRN IV LOCK FITTER 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; Start 03/17/19 at 11:00; Stop 03/18/19 at 10:59; Status DC Sodium Chloride 1,000 ml @ 400 mls/hr Q2H30M PRN IV PATENCY; Start 03/17/19 at 10:58; Stop 03/17/19 at 22:57; Status DC Info (PHARMACY MONITORING -- do not chart) 1 each PRN DAILY PRN MC SEE COMMENTS; Start 03/17/19 at 11:00 Piperacillin Sod/ Tazobactam Sod (Zosyn Per Pharmacy) 1 each PRN DAILY PRN MC SEE COMMENTS; Start 03/17/19 at 12:15 Piperacillin Sod/ Tazobactam Sod 2.25 gm/Sodium Chloride 50 ml @ 100 mls/hr Q8HRS IV Last administered on 03/20/19at 04:58; Start 03/17/19 at 14:00; Stop 03/20/19 at 13:30; Status DC Lactobacillus Rhamnosus (Culturelle) 1 cap BID PO Last administered on 03/21/19at 09:02; Start 03/17/19 at 21:00 Labetalol HCl (Normodyne Iv Push) 20 mg PRN Q2HR PRN IVP HYPERTENSION Last administered on 03/18/19at 01:39; Start 03/17/19 at 18:00 Labetalol HCl (Normodyne Iv Push) 20 mg 1X ONCE IVP Last administered on 03/17/19at 18:01; Start 03/17/19 at 18:00; Stop 03/17/19 at 18:01; Status DC Cyclobenzaprine HCl (Flexeril) 10 mg TID PO Last administered on 03/21/19at 09:02; Start 03/17/19 at 21:00 Doxazosin Mesylate (Cardura) 4 mg DAILY PO Last administered on 03/21/19at 09:02; Start 03/18/19 at 09:00 Oxycodone/ Acetaminophen (Percocet 5/325) 1 tab PRN Q6HRS PRN PO PAIN SEVERE Last administered on 03/20/19 21:26; Start 03/17/19 at 18:00 Amlodipine Besylate (Norvasc) 10 mg DAILY PO Last administered on 03/21/19at 09:02; Start 03/18/19 at 09:00 Influenza Virus Vaccine Quadrival (Afluria Quad 2019-20 (3yr Up) Syringe) 0.5 ml ONCE ONCE VAX IM Last administered on 03/19/19at 11:05; Start 03/19/19 at 11:30; Stop 03/19/19 at 11:31; Status DC Piperacillin Sod/ Tazobactam Sod 2.25 gm/Sodium Chloride 50 ml @ 100 mls/hr Q6HRS IV Last administered on 03/21/19at 04:53; Start 03/20/19 at 14:00 Active Scripts Active Reported Cyclobenzaprine Hcl 10 Mg Tablet 1 Tab PO TID Tribenzor 40-10-25 Mg Tablet (Olmesartan/Amlodipin/Hcthiazid) 1 Each Tablet 1 Tab PO DAILY Oxycodone-Acetaminophen 5-325 (Oxycodone Hcl/Acetaminophen) 1 Each Tablet 1 Each PO PRN Q6HRS PRN Doxazosin Mesylate 4 Mg Tablet 1 Tab PO DAILY Vital Signs Vital Signs Date Time Temp Pulse Resp B/P (MAP) Pulse Ox O2 Delivery O2 Flow Rate FiO2 03/21/19 11:02 98.7 112 18 122/70 (87) 95 Room Air 98.7 Labs Laboratory Tests Test 03/20/19 04:30 03/21/19 05:50 White Blood Count 10.6 x10^3/uL (4.0-11.0) 11.0 x10^3/uL (4.0-11.0) Red Blood Count 6.22 x10^6/uL (4.30-5.70) 6.22 x10^6/uL (4.30-5.70) Hemoglobin 17.4 g/dL (13.0-17.5) 17.8 g/dL (13.0-17.5) Hematocrit 51.7 % (39.0-53.0) 51.5 % (39.0-53.0) Mean Corpuscular Volume 83 fL (79-100) 83 fL (79-100) Mean Corpuscular Hemoglobin 28 pg (25-35) 29 pg (25-35) Mean Corpuscular Hemoglobin Concent 34 g/dL (31-37) 35 g/dL (31-37) Red Cell Distribution Width 19.7 % (11.5-14.5) 19.8 % (11.5-14.5) Platelet Count 164 x10^3/uL (140-400) 164 x10^3/uL (140-400) Neutrophils (%) (Auto) 77 % (31-73) 76 % (31-73) Lymphocytes (%) (Auto) 12 % (24-48) 13 % (24-48) Monocytes (%) (Auto) 9 % (0-9) 8 % (0-9) Eosinophils (%) (Auto) 2 % (0-3) 3 % (0-3) Basophils (%) (Auto) 0 % (0-3) 0 % (0-3) Neutrophils # (Auto) 8.1 x10^3/uL (1.8-7.7) 8.3 x10^3/uL (1.8-7.7) Lymphocytes # (Auto) 1.3 x10^3/uL (1.0-4.8) 1.4 x10^3/uL (1.0-4.8) Monocytes # (Auto) 0.9 x10^3/uL (0.0-1.1) 0.9 x10^3/uL (0.0-1.1) Eosinophils # (Auto) 0.3 x10^3/uL (0.0-0.7) 0.3 x10^3/uL (0.0-0.7) Basophils # (Auto) 0.0 x10^3/uL (0.0-0.2) 0.0 x10^3/uL (0.0-0.2) Sodium Level 143 mmol/L (136-145) 141 mmol/L (136-145) Potassium Level 3.6 mmol/L (3.5-5.1) 3.6 mmol/L (3.5-5.1) Chloride Level 103 mmol/L (98-107) 105 mmol/L (98-107) Carbon Dioxide Level 28 mmol/L (21-32) 26 mmol/L (21-32) Anion Gap 12 (6-14) 10 (6-14) Blood Urea Nitrogen 66 mg/dL (8-26) 57 mg/dL (8-26) Creatinine 2.9 mg/dL (0.7-1.3) 2.4 mg/dL (0.7-1.3) Estimated GFR (Cockcroft-Gault) 22.0 27.4 BUN/Creatinine Ratio 23 (6-20) 24 (6-20) Glucose Level 124 mg/dL (70-99) 120 mg/dL (70-99) Calcium Level 8.6 mg/dL (8.5-10.1) 9.2 mg/dL (8.5-10.1) Total Bilirubin 1.1 mg/dL (0.2-1.0) 1.4 mg/dL (0.2-1.0) Aspartate Amino Transf (AST/SGOT) 78 U/L (15-37) 49 U/L (15-37) Alanine Aminotransferase (ALT/SGPT) 90 U/L (16-63) 76 U/L (16-63) Alkaline Phosphatase 214 U/L (46-116) 184 U/L (46-116) Creatine Kinase 577 U/L (39-308) Total Protein 5.9 g/dL (6.4-8.2) 6.9 g/dL (6.4-8.2) Albumin 2.2 g/dL (3.4-5.0) 2.2 g/dL (3.4-5.0) Albumin/Globulin Ratio 0.6 (1.0-1.7) 0.5 (1.0-1.7) Laboratory Tests Test 03/21/19 05:50 White Blood Count 11.0 x10^3/uL (4.0-11.0) Red Blood Count 6.22 x10^6/uL (4.30-5.70) Hemoglobin 17.8 g/dL (13.0-17.5) Hematocrit 51.5 % (39.0-53.0) Mean Corpuscular Volume 83 fL (79-100) Mean Corpuscular Hemoglobin 29 pg (25-35) Mean Corpuscular Hemoglobin Concent 35 g/dL (31-37) Red Cell Distribution Width 19.8 % (11.5-14.5) Platelet Count 164 x10^3/uL (140-400) Neutrophils (%) (Auto) 76 % (31-73) Lymphocytes (%) (Auto) 13 % (24-48) Monocytes (%) (Auto) 8 % (0-9) Eosinophils (%) (Auto) 3 % (0-3) Basophils (%) (Auto) 0 % (0-3) Neutrophils # (Auto) 8.3 x10^3/uL (1.8-7.7) Lymphocytes # (Auto) 1.4 x10^3/uL (1.0-4.8) Monocytes # (Auto) 0.9 x10^3/uL (0.0-1.1) Eosinophils # (Auto) 0.3 x10^3/uL (0.0-0.7) Basophils # (Auto) 0.0 x10^3/uL (0.0-0.2) Sodium Level 141 mmol/L (136-145) Potassium Level 3.6 mmol/L (3.5-5.1) Chloride Level 105 mmol/L (98-107) Carbon Dioxide Level 26 mmol/L (21-32) Anion Gap 10 (6-14) Blood Urea Nitrogen 57 mg/dL (8-26) Creatinine 2.4 mg/dL (0.7-1.3) Estimated GFR (Cockcroft-Gault) 27.4 BUN/Creatinine Ratio 24 (6-20) Glucose Level 120 mg/dL (70-99) Calcium Level 9.2 mg/dL (8.5-10.1) Total Bilirubin 1.4 mg/dL (0.2-1.0) Aspartate Amino Transf (AST/SGOT) 49 U/L (15-37) Alanine Aminotransferase (ALT/SGPT) 76 U/L (16-63) Alkaline Phosphatase 184 U/L (46-116) Total Protein 6.9 g/dL (6.4-8.2) Albumin 2.2 g/dL (3.4-5.0) Albumin/Globulin Ratio 0.5 (1.0-1.7) Allergies Allergies Coded Allergies Type Severity Reaction Last Updated Verified No Known Drug Allergies 03/17/19 No Disposition/Orders: D/C to Home Patient Instructions D/C PLANNING 34 MIN CAIO SCHOFIELD MD Mar 21, 2019 11:55
[2019-03-21] MEDS ORDERED: AMLO10TA8 PO (11:58)
[2019-03-21] MEDS ORDERED: LACT1CAP19 PO (11:58)
[2019-03-21] MEDS ORDERED: AMOX1TAB58 PO (11:58)
--- NOTE | 2019-03-21 11:59 | DISCH ---
DISCHARGE INSTRUCTIONS Condition on Discharge Condition on Discharge: Stable Activity After Discharge Activity Instructions for Disc: Activity as tolerated Driving Instructions after Dis: Do not drive Diet after Discharge Diet after Discharge: Renal Non-Dialysis Checks after Discharge Checks after discharge: Check blood press - daily Community/Resources/Services Services at Discharge: Home Health Care Services, PT EVALUATE & TREAT, OT Evaluate & Treat Contacting the [facility] after DC Call your doctor for: If your condition worsens Treatment/Equipment after DC Adaptive Equipment Issued: Front wheeled walker Warfarin Follow-Up Warfarin Follow UP: SEE UROLOGY IN [place] CARLOS A CAIO SCHOFIELD MD Mar 21, 2019 11:59
--- NOTE | 2019-03-21 12:00 | SNU/HH DC ---
DISCHARGE WITH HOME HEALTH DISCHARGE INFORMATION: Final Diagnosis: Problems Medical Problems: (1) Acute renal failure Status: Acute (2) Altered level of consciousness Status: Acute (3) Elevated liver function tests Status: Acute (4) Hyperkalemia Status: Acute (5) Hypermagnesemia Status: Acute (6) Hypoalbuminemia Status: Acute (7) Hypochloremia Status: Acute (8) Hyponatremia Status: Acute (9) Metabolic acidosis Status: Acute (10) Rhabdomyolysis Status: Acute (11) Uremia Status: Acute (12) Urinary tract infection Status: Acute Condition on Discharge: Stable CODE STATUS: Code Status: Full HOME HEALTH: Face to Face: I certify this patient is under my care and that I, or a nurse practitioner or physician's medical clerical assistant working with me, had a face to face encounter that meets the physician face to face encounter requirements with this patient on []. RN For Eval/Treatment: Yes Physical Therapy For: Evalulation/Treatment Occupational Therapy For: Evaluation/Treatment Speech Language Pathology For: Evaluation/Treatment Home Health Aide For: Self-care MERCURY RECOVERER For: Community Resources Pt Meets Homebound Status: Unsteady balance w/ amb, POST DISCHARGE ORDERS: Activity Instructions for Disc: Activity as tolerated DIET AFTER DISCHARGE: Low Sodium 2 gm CHECKS AFTER DISCHARGE: Checks after discharge: Check blood press - daily FOLLOW-UP: Warfarin Follow UP: SEE UROLOGY IN [facility] TREATMENT/EQUIPMENT ORDERS: Adaptive Equipment Issued: Front wheeled walker CERTIFICATION STATEMENT: Certification Statement: Certification Statement: Based on the above finding, I certify that this patient is confined to the home and needs intermittent chcf care, physical therapy and/or speech therapy, or continues to need occupational therapy.~ This patient is under my care, and I have initiated the establishment of the plan of care.~ This patient will be followed by myself or a community physician who will periodically review the plan of care. Home Meds Active Scripts Amoxicillin/Potassium Clav (AUGMENTIN 500-125 TABLET) 1 Each Tablet, 1 TAB PO BID for INFECTION for 10 Days, #20 TAB Prov:CAIO SCHOFIELD MD 03/21/19 Lactobacillus Rhamnosus Gg (CULTURELLE) 1 Each Cap.sprink, 1 CAP PO BID for SUPPLEMENT for 28 Days, #56 CAP Prov:CAIO SCHOFIELD MD 03/21/19 Amlodipine Besylate (AMLODIPINE BESYLATE) 10 Mg Tablet, 10 MG PO DAILY for BLOOD PRESSURE for 30 Days, #30 TAB Prov:CAIO SCHOFIELD MD 03/21/19 Reported Medications Doxazosin Mesylate (DOXAZOSIN MESYLATE) 4 Mg Tablet, 1 TAB PO DAILY for urinary retention, #30 TAB 5 Refills 03/17/19 Discontinued Reported Medications Cyclobenzaprine Hcl (CYCLOBENZAPRINE HCL) 10 Mg Tablet, 1 TAB PO TID for muscle relaxant, #90 TAB 03/17/19 Olmesartan/Amlodipin/Hcthiazid (TRIBENZOR 40-10-25 MG TABLET) 1 Each Tablet, 1 TAB PO DAILY for htn, #30 TAB 5 Refills 03/17/19 Oxycodone Hcl/Acetaminophen (OXYCODONE-ACETAMINOPHEN 5-325) 1 Each Tablet, 1 EACH PO PRN Q6HRS PRN for PAIN, TAB 0 Refills 03/17/19 CAIO SCHOFIELD MD Mar 21, 2019 12:00
--- NOTE | 2019-03-21 12:27 | PDOC ---
JACKSON SMITH 03/21/19 1227: SUBJECTIVE Subjective Pt feeling much better. No confusion. Ready to go home. states they have appointment with urology on 03/26/19 in [place] OBJECTIVE Vital Signs Vital Signs Date Time Temp Pulse Resp B/P (MAP) Pulse Ox O2 Delivery O2 Flow Rate FiO2 03/21/19 11:02 98.7 112 18 122/70 (87) 95 Room Air 98.7 03/21/19 09:02 98 150/87 03/21/19 09:02 98 150/87 03/21/19 07:15 98.2 98 20 150/87 (108) 95 Room Air 98.2 03/21/19 03:00 18 131/72 (91) Room Air 03/20/19 22:57 98.0 95 18 115/69 (84) 95 Room Air 98.0 03/20/19 22:26 18 95 Room Air 03/20/19 21:26 18 95 Room Air 03/20/19 20:00 Room Air 03/20/19 19:00 98.0 103 18 144/73 (96) 95 Room Air 98.0 03/20/19 15:00 98.0 106 16 119/61 (80) 97 Room Air 98.0 03/20/19 14:30 Room Air 03/20/19 13:30 Room Air I & O Intake and Output 03/21/19 07:00 Intake Total 220 ml Output Total 2500 ml Balance -2280 ml Intake Oral 120 ml IV Total 100 ml Output Urine Total 2500 ml PHYSICAL EXAM Physical Exam Alert, NAD, Pleasant Unlabored breathing Abdomen soft nontender [place] draining clear yellow urine ASSESSMENT/PLAN Assessment/Plan Urinary retention, REJI Creatinine much improved - 2.4 today Continue newsome until pt sees Urology next week Abnormal CT finding left kidney Pt and given copy of image report They understand and will f/u with urologist for further imaging COMMENT Lab Laboratory Tests Test 03/21/19 05:50 White Blood Count 11.0 x10^3/uL (4.0-11.0) Red Blood Count 6.22 x10^6/uL (4.30-5.70) Hemoglobin 17.8 g/dL (13.0-17.5) Hematocrit 51.5 % (39.0-53.0) Mean Corpuscular Volume 83 fL (79-100) Mean Corpuscular Hemoglobin 29 pg (25-35) Mean Corpuscular Hemoglobin Concent 35 g/dL (31-37) Red Cell Distribution Width 19.8 % (11.5-14.5) Platelet Count 164 x10^3/uL (140-400) Neutrophils (%) (Auto) 76 % (31-73) Lymphocytes (%) (Auto) 13 % (24-48) Monocytes (%) (Auto) 8 % (0-9) Eosinophils (%) (Auto) 3 % (0-3) Basophils (%) (Auto) 0 % (0-3) Neutrophils # (Auto) 8.3 x10^3/uL (1.8-7.7) Lymphocytes # (Auto) 1.4 x10^3/uL (1.0-4.8) Monocytes # (Auto) 0.9 x10^3/uL (0.0-1.1) Eosinophils # (Auto) 0.3 x10^3/uL (0.0-0.7) Basophils # (Auto) 0.0 x10^3/uL (0.0-0.2) Sodium Level 141 mmol/L (136-145) Potassium Level 3.6 mmol/L (3.5-5.1) Chloride Level 105 mmol/L (98-107) Carbon Dioxide Level 26 mmol/L (21-32) Anion Gap 10 (6-14) Blood Urea Nitrogen 57 mg/dL (8-26) Creatinine 2.4 mg/dL (0.7-1.3) Estimated GFR (Cockcroft-Gault) 27.4 BUN/Creatinine Ratio 24 (6-20) Glucose Level 120 mg/dL (70-99) Calcium Level 9.2 mg/dL (8.5-10.1) Total Bilirubin 1.4 mg/dL (0.2-1.0) Aspartate Amino Transf (AST/SGOT) 49 U/L (15-37) Alanine Aminotransferase (ALT/SGPT) 76 U/L (16-63) Alkaline Phosphatase 184 U/L (46-116) Total Protein 6.9 g/dL (6.4-8.2) Albumin 2.2 g/dL (3.4-5.0) Albumin/Globulin Ratio 0.5 (1.0-1.7) Imaging CT ab/p WO Impression: Left basilar pulmonary nodule is present. If stability is unknown, interval follow-up in 3 months is recommended by CT of the chest to assess stability. No hydronephrosis. Lobular contour of the right lateral lower pole level is evident. Correlated with previous enhance assess stability. Consider further evaluation with ultrasound to assess possibility of a mass lesion. Alternatively, consider follow-up CT of the kidneys with contrast when the patient is able to assess for mass lesion. Nutrition Consultation Dietary Evaluation: Recommendations by RD: Increase Calorie Intake, Protein supplementation Comments: Continue w/renal diet REC glucerna (chocolate) w/lunch Expected Outcomes/Goals: PO intake to meet >75% est needs Interpretation of weight loss: >5% in 1 month Malnutrition Findings: Food and Nutrition Intake (Sev: <50% est energy req 5days Weight Status: Obese DEVON MADDOX MD 03/21/19 1415: ASSESSMENT/PLAN Assessment/Plan Agree with assessment and plan. JACKSON SMITH Mar 21, 2019 12:27 DEVON MADDOX MD Mar 21, 2019 14:15
--- NOTE | 2019-03-21 14:07 | PDOC ---
SUBJECTIVE ROS No complaints, DC home today with Neri, has appt with PCP on monday and and Urology on Monday OBJECTIVE Vital Signs Vital Signs Date Time Temp Pulse Resp B/P (MAP) Pulse Ox O2 Delivery O2 Flow Rate FiO2 03/21/19 11:02 98.7 112 18 122/70 (87) 95 Room Air 98.7 I & 0 Intake and Output 03/21/19 06:59 Intake Total 220 ml Output Total 2500 ml Balance -2280 ml Intake Oral 120 ml IV Total 100 ml Output Urine Total 2500 ml PHYSICAL EXAM Physical Exam General: NAD HEENT: moist oral mucosa, On RA Neck: supple Respiratory: unlabored breathing, not using accessory muscles Cardiovascular: Regular rate, regular rhythm Abdomen: nontender, obese : Neri catheter + Skin: no rashes or skin lesions Neuro Grossly normal DIAGNOSIS/ASSESSMENT Assessment & Plan Acute Renal failure, acute - urinary tract infection Emergent HD 03/17 , No hydronephrosis on CT scan , Renal function improving Excellent UOP, E-Lytes and acid base stable, Vol status stable HDC removed UTI- On Abx Metabolic acidosis- Resolved . Hyperkalemia - resolved HTN - stable, monitor Avoid Hypotension , titrate BP meds accordingly Hx of Nephrolithiasis- Multiple urologic interventions No Hydronephrosis, dc with Neri per urology Right renal lower pole convexity noted may represent a dromedary hump although possibly possibly elevated mass lesion is not entirely excluded. Radiologist recommend further fu , Urology on board - defer to them Discussed with Pt and at bedside, has appt with PCP on monday and Urology on Monday COMMENT/RELEVANT DATA Meds Current Medications Medications (Trade) Dose Ordered Sig/Erasto Start Time Stop Time Status Last Admin Dose Admin Acetaminophen (Tylenol) 500 mg 1X PRN PRN 03/17/19 11:00 03/18/19 10:59 DC Albumin Human 200 ml @ 200 mls/hr 1X PRN PRN 03/17/19 11:00 03/17/19 16:59 DC Amlodipine Besylate (Norvasc) 10 mg DAILY 03/18/19 09:00 03/21/19 09:02 10 MG Cyclobenzaprine HCl (Flexeril) 10 mg TID 03/17/19 21:00 03/21/19 09:02 10 MG Dextrose (Dextrose 50%-Water Syringe) 25 gm 1X ONCE 03/17/19 02:00 03/17/19 02:01 DC 03/17/19 05:07 25 GM Diphenhydramine HCl (Benadryl) 25 mg 1X PRN PRN 03/17/19 11:00 03/18/19 10:59 DC Doxazosin Mesylate (Cardura) 4 mg DAILY 03/18/19 09:00 03/21/19 09:02 4 MG Fentanyl Citrate (Fentanyl 2ml Vial) 50 mcg 1X ONCE 03/17/19 01:30 03/17/19 01:31 DC 03/17/19 01:37 50 MCG Hydromorphone HCl (Dilaudid) 1 mg 1X ONCE 03/17/19 04:00 03/17/19 04:01 DC 03/17/19 03:27 1 MG Influenza Virus Vaccine Quadrival (Afluria Quad 2019-20 (3yr Up) Syringe) 0.5 ml ONCE ONCE 03/19/19 11:30 03/19/19 11:31 DC 03/19/19 11:05 0.5 ML Info (PHARMACY MONITORING -- do not chart) 1 each PRN DAILY PRN 03/17/19 11:00 Insulin Human Regular (HumuLIN R VIAL) 10 unit 1X ONCE 03/17/19 02:00 03/17/19 02:01 DC 03/17/19 05:06 10 UNIT Labetalol HCl (Normodyne Iv Push) 20 mg 1X ONCE 03/17/19 18:00 03/17/19 18:01 DC 03/17/19 18:01 20 MG Lactobacillus Rhamnosus (Culturelle) 1 cap BID 03/17/19 21:00 03/21/19 09:02 1 CAP Lidocaine/Sodium Bicarbonate (Buffered Lidocaine 1%) 6 ml 1X ONCE 03/17/19 07:30 03/17/19 07:31 DC 03/17/19 08:44 5 ML Oxycodone/ Acetaminophen (Percocet 5/325) 1 tab PRN Q6HRS PRN 03/17/19 18:00 03/20/19 21:26 1 TAB Piperacillin Sod/ Tazobactam Sod (Zosyn Per Pharmacy) 1 each PRN DAILY PRN 03/17/19 12:15 Piperacillin Sod/ Tazobactam Sod 2.25 gm/Sodium Chloride 50 ml @ 100 mls/hr Q6HRS 03/20/19 14:00 03/21/19 12:21 100 MLS/HR Piperacillin Sod/ Tazobactam Sod 3.375 gm/Sodium Chloride 50 ml @ 100 mls/hr 1X ONCE 03/17/19 02:00 03/17/19 02:29 DC 03/17/19 02:00 100 MLS/HR Sodium Bicarbonate 150 meq/Dextrose 1,150 ml @ 150 mls/hr Q7H40M 03/17/19 04:00 03/19/19 10:58 DC 03/19/19 07:14 150 MLS/HR Sodium Polystyrene Sulfonate (Kayexalate) 30 gm 1X ONCE 03/17/19 02:00 03/17/19 02:01 DC Sodium Bicarbonate (Sodium Bicarb Adult 8.4% Syr) 50 meq 1X ONCE 03/17/19 02:00 03/17/19 02:01 DC 03/17/19 05:03 50 MEQ Sodium Chloride 1,000 ml @ 400 mls/hr Q2H30M PRN 03/17/19 10:58 03/17/19 22:57 DC Sodium Chloride (Normal Saline Flush) 10 ml 1X PRN PRN 03/17/19 11:00 03/18/19 10:59 DC Vancomycin HCl 250 ml @ 250 mls/hr 1X ONCE 03/17/19 02:00 03/17/19 02:59 DC 03/17/19 04:36 250 MLS/HR Lab Laboratory Tests Test 03/21/19 05:50 White Blood Count 11.0 x10^3/uL (4.0-11.0) Red Blood Count 6.22 x10^6/uL (4.30-5.70) Hemoglobin 17.8 g/dL (13.0-17.5) Hematocrit 51.5 % (39.0-53.0) Mean Corpuscular Volume 83 fL (79-100) Mean Corpuscular Hemoglobin 29 pg (25-35) Mean Corpuscular Hemoglobin Concent 35 g/dL (31-37) Red Cell Distribution Width 19.8 % (11.5-14.5) Platelet Count 164 x10^3/uL (140-400) Neutrophils (%) (Auto) 76 % (31-73) Lymphocytes (%) (Auto) 13 % (24-48) Monocytes (%) (Auto) 8 % (0-9) Eosinophils (%) (Auto) 3 % (0-3) Basophils (%) (Auto) 0 % (0-3) Neutrophils # (Auto) 8.3 x10^3/uL (1.8-7.7) Lymphocytes # (Auto) 1.4 x10^3/uL (1.0-4.8) Monocytes # (Auto) 0.9 x10^3/uL (0.0-1.1) Eosinophils # (Auto) 0.3 x10^3/uL (0.0-0.7) Basophils # (Auto) 0.0 x10^3/uL (0.0-0.2) Sodium Level 141 mmol/L (136-145) Potassium Level 3.6 mmol/L (3.5-5.1) Chloride Level 105 mmol/L (98-107) Carbon Dioxide Level 26 mmol/L (21-32) Anion Gap 10 (6-14) Blood Urea Nitrogen 57 mg/dL (8-26) Creatinine 2.4 mg/dL (0.7-1.3) Estimated GFR (Cockcroft-Gault) 27.4 BUN/Creatinine Ratio 24 (6-20) Glucose Level 120 mg/dL (70-99) Calcium Level 9.2 mg/dL (8.5-10.1) Total Bilirubin 1.4 mg/dL (0.2-1.0) Aspartate Amino Transf (AST/SGOT) 49 U/L (15-37) Alanine Aminotransferase (ALT/SGPT) 76 U/L (16-63) Alkaline Phosphatase 184 U/L (46-116) Total Protein 6.9 g/dL (6.4-8.2) Albumin 2.2 g/dL (3.4-5.0) Albumin/Globulin Ratio 0.5 (1.0-1.7) Results All relevant outside records, renal labs, imaging studies, telemetry/EKG's were reviewed. JAYLAN MEDINA MD Mar 21, 2019 14:07
--- NOTE | 2019-03-21 15:06 | NUR ---
Discharge Note: Patient was discharged home with self care. Services were not able to be set up due to patient being from [place]. Patient has an appointment with his primary care doctor on Monday. Patients IV were discontinued without any complications per ROHINI. Patient temporary dialysis catheter was removed per Dr. Romero's orders by this RN without any complications, pressure dressing applied. Patients at bedside at the time of discharge education. Patient was educated on newsome catheter care and was given a leg bag. Patient was also given discharge summary/instructions, follow-ups, prescriptions and educational material on disease and diet. Patient and did not have any further questions. Patient was taken down to the main entrance via wheelchair accompanied by ROHINI Barajas, with all personal belongings, where his was waiting for him to take him home.
--- NOTE | 2019-03-25 08:39 | RAD ---
Procedure: Ultrasound-guided placement of right internal jugular central venous /7/2019 6:35 AM Clinical Indication: FOR DIALYSIS Discussion: The risks and benefits of the procedure were discussed the patient and/or their auto service representative. Informed consent was obtained. A timeout procedure was performed. All elements of maximal sterile barrier technique including the use of a cap, mask, sterile gown, sterile gloves, large sterile sheet, appropriate hand hygiene, and 2% chlorhexidine for cutaneous antisepsis (or acceptable alternative antiseptic per current guidelines) were followed for this procedure. The patient was prepped and draped in the usual sterile fashion. Ultrasound interrogation of the right neck revealed patency and compressibility of the right internal jugular vein. A 21-gauge micropuncture was then used to gain access to this vein under ultrasound guidance. A hard copy ultrasound image was recorded. A guidewire was advanced centrally. 5 U[place] sheath was placed. Over a wire following dilatation, a dual-lumen temporary dialysis catheter was advanced centrally. Catheter was found to flush and aspirate normally. Follow-up chest radiograph demonstrates tip at the cavoatrial junction. Catheter secured in place and a sterile dressing was applied. No immediate complications were identified. Impression: Successful ultrasound-guided placement of right internal jugular dual-lumen temporary dialysis central venous catheter
== END 2019-03-21 14:40 | disposition home or self-care (01) | DRG 871 ==
LOC: ER 00:43 → 1 WEST ICU 01:33 → 5 SOUTH 03-19 14:24
PROVIDERS: ADMIT Internal Medicine; ATTEND Internal Medicine
PROC: 5A1D70Z Performance of Urinary Filtration, Intermittent, Less than 6 Hours Per Day (ICD-10-PCS; principal; 2019-03-17)
PROC: 02HV33Z Insertion of Infusion Device into Superior Vena Cava, Percutaneous Approach (ICD-10-PCS; 2019-03-17)
DX: A41.9 Sepsis, unspecified organism (principal); N17.0 Acute kidney failure with tubular necrosis; E46 Unspecified protein-calorie malnutrition; E87.1 Hypo-osmolality and hyponatremia; J98.11 Atelectasis; M62.82 Rhabdomyolysis; N39.0 Urinary tract infection, site not specified; Z68.41 Body mass index [BMI] 40.0-44.9, adult; E83.41 Hypermagnesemia; E66.01 Morbid (severe) obesity due to excess calories; E87.5 Hyperkalemia; I10 Essential (primary) hypertension; N40.0 Benign prostatic hyperplasia without lower urinary tract symptoms; Z83.3 Family history of diabetes mellitus; Z87.440 Personal history of urinary (tract) infections; Z87.442 Personal history of urinary calculi; G89.29 Other chronic pain; Z79.899 Other long term (current) drug therapy
CPT/HCPCS: 36415; 36556; 70450; 71045; 73501; 74176; 76937; 80053; 81001; 82140; 82550; 83605; 83735; 83880; 84484; 85025; 85610; 86704; 87040; 87086; 87186; 87340; 90471; 90686; 93005; 96365; 96375; A4215; C1892; J1170; J1815; J2543; J3010; J3370; J3490; J7030; J7042; 97110; 97530; 97535; 99285-25; G0378